=== PATIENT | male | born 1930 | race Caucasian/White ===

== ENCOUNTER 2016-08-17 14:38 | Observation (INO) | payer OTHER, MEDICARE ==
--- NOTE | 2016-08-17 17:03 | PDOC ---
History of Present Illness - General History Source: Patient, Family (Daughter ) Exam Limitations: No Limitations - History of Present Illness Initial Comments: 08/17/16 19:03 The patient is a 86 year old male presenting with his daughter, with a significant past medical history of Prostate CA, HTN, Sick sinus syndrome, parkinsons and kidney stones, who presents to the emergency department with right sided flank pain for the past week. He states that his pain has increased in intensity over the last couple of days. He describes his pain as moderate in severity, without radiation. He notes that the pain is constant, exacerbating when he moves around and walks. He denies taking anything for the pain. The patient denies chest pain, shortness of breath, headache and dizziness. Denies fever, chills, nausea, vomit, diarrhea and constipation. Denies dysuria, frequency, urgency and hematuria. Allergies: None Past surgical history: Right shoulder pain Social history: +Alcohol use. No tobacco or drug use reported PMD - Dr. Daniel Woods <Ryan Broderick - Last Filed: 08/17/16 19:02> <Jorge Carter - Last Filed: 08/19/16 08:27> - General Chief Complaint: Pain, Acute Stated Complaint: RIGHT SIDE PAIN FOR ONE WEEK Time Seen by Provider: 08/17/16 17:02 Past History <Ryan Broderick - Last Filed: 08/17/16 19:02> - Past Medical History Anemia: No Asthma: No Cancer: Yes (prostate CA) Cardiac Disorders: Yes (SICK SINUS SYNDROME) COPD: No Other medical history: parkinsons - Surgical History Orthopedic Surgery: Yes (THR;RIGHT SHOULDER SURGERY) - Psycho/Social/Smoking Cessation Hx Suicidal Ideation: No Smoking Status: No Smoking History: Never smoked Years of Tobacco Use: 0 Have you smoked in the past 12 months: No Number of Cigarettes Smoked Daily: 0 Information on smoking cessation initiated: No Hx Alcohol Use: Yes (occasionally) Drug/Substance Use Hx: No Substance Use Type: None <Jorge Carter - Last Filed: 08/19/16 08:27> - Past Medical History Allergies/Adverse Reactions: Allergies Allergy/AdvReac Type Severity Reaction Status Date / Time No Known Allergies Allergy Verified 08/17/16 15:22 Home Medications: Ambulatory Orders Amlodipine Besylate [Norvasc -] 2.5 mg PO DAILY 08/17/16 Bicalutamide 50 mg PO DAILY 08/17/16 Carbidopa/Levodopa [Carbidopa-Levo ER 50-200 Tab] 1 each PO DAILY 08/17/16 Carbidopa/Levodopa [Carbidopa-Levodopa 25-250 Tab] 1 each PO BID 08/17/16 Review of Systems - Review of Systems Able to Perform ROS?: Yes Comments:: 08/17/16 19:03 CONSTITUTIONAL: No reported: Fever, Chills, Diaphoresis, Generalized Weakness, Malaise, Loss of Appetite HEENT: No reported: Rhinorrhea, Nasal Congestion, Throat Pain, Throat Swelling, Difficulty Swallowing, Mouth Swelling, Ear Pain, Eye Pain, Visual Changes CARDIOVASCULAR: No reported: Chest Pain, Syncope, Palpitations, Irregular Heart Rate, Lightheadedness, Peripheral Edema RESPIRATORY: No reported: Cough, Shortness of Breath, SOB with Exertion, Orthopnea, Wheezing , Stridor, Hemoptysis GASTROINTESTINAL: No reported: Abdominal pain, Abdominal Distension, Nausea, Vomiting, Diarrhea, Constipation, Melena, Hematochezia GENITOURINARY: Reported: Right flank pain. No reported: Dysuria, Frequency, Urgency, Hesitancy, Genital Pain MUSCULOSKELETAL: No reported: Myalgia, Arthralgia, Joint Swelling, Back pain, Neck Pain SKIN: No reported: Rash, Itching, Pallor HEMEATOLOGIC/IMMUNOLOGIC: No reported: Easy Bleeding, Easy Bruising, Lymphadenopathy, Frequent infections ENDOCRINE: No reported: Unexplained Weight Gain, Unexplained Weight Loss, Heat Intolerance , Cold Intolerance NEUROLOGIC: No reported: Headache, Focal Weakness, Paresthesias, Vertigo, Lightheadedness, Unsteady Gait, Seizure, Mental Status Changes, Incontinence PSYCHIATRIC: No reported: Anxiety, Depression <Ryan Broderick - Last Filed: 08/17/16 19:02> *Physical Exam - Vital Signs Last Vital Signs Temp Pulse Resp BP Pulse Ox 97.9 F 56 L 22 143/56 97 08/17/16 15:18 08/17/16 15:18 08/17/16 15:18 08/17/16 15:18 08/17/16 15:18 - Physical Exam Comments: 08/17/16 19:03 GENERAL: The patient is awake, alert, and fully oriented, Nontoxic - in no acute distress. HEAD: Normocephalic, atraumatic. EYES: extraocular movements intact, sclera anicteric, conjunctiva clear. ENT: Normal voice, Moist mucous membranes. NECK: Normal range of motion, supple LUNGS: Breath sounds equal, clear to auscultation bilaterally. No wheezes, no rhonchi, no rales. HEART: Regular rate and rhythm, without murmur, rub or gallop. ABDOMEN: Soft, mild RLQ tenderness normoactive bowel sounds. No guarding, no rebound.No CVA tenderness BACK: no focal midline tenderness. EXTREMITIES: Normal range of motion, no edema. No clubbing or cyanosis. No cords, erythema, or tenderness. NEUROLOGICAL: No facial assymetry, Normal speech, PSYCH: Normal mood, normal affect. SKIN: Warm, Dry, normal turgor <Ryan Broderick - Last Filed: 08/17/16 19:02> - Vital Signs Last Vital Signs Temp Pulse Resp BP Pulse Ox 97.9 F 56 L 22 143/56 97 08/17/16 15:18 08/17/16 15:18 08/17/16 15:18 08/17/16 15:18 08/17/16 15:18 <Jorge Carter - Last Filed: 08/19/16 08:27> ED Treatment Course - LABORATORY CBC & Chemistry Diagram: 08/17/16 18:00 08/17/16 18:00 - ADDITIONAL ORDERS Additional order review: Laboratory Results 08/17/16 18:00 Urine Color Ltyellow Urine Appearance Clear Urine pH 6.0 Ur Specific [place] 1.010 Urine Protein Negative Urine Glucose (UA) Negative Urine Ketones Trace H Urine Blood Negative Urine Nitrite Negative Urine Bilirubin Negative Urine Urobilinogen Negative Ur Leukocyte Esterase Negative 08/17/16 18:00 RBC 4.55 MCV 92.0 MCHC 33.1 RDW 13.7 MPV 7.0 L Neutrophils % 51.2 Lymphocytes % 37.3 Monocytes % 9.3 Eosinophils % 2.0 Basophils % 0.2 - Medications Given in the ED: ED Medications Discontinued Medications Generic Name Dose Route Start Last Admin Trade Name Freq PRN Reason Stop Dose Admin Morphine Sulfate 2 mg 08/17/16 17:46 08/17/16 18:07 Morphine Injection - IVPUSH 08/17/16 17:47 2 mg ONCE ONE Administration <Ryan Broderick - Last Filed: 08/17/16 19:02> - LABORATORY CBC & Chemistry Diagram: 08/18/16 06:20 08/18/16 06:20 <Jorge Carter - Last Filed: 08/19/16 08:27> Medical Decision Making - Medical Decision Making 08/17/16 17:46 86y M hx of htn, prostate ca, presents with RLQ pain that is constant, worse with movement and certain movements, no associated f/c, diarrhea,dsyria, cp, sob. on exam pt has mild RLQ tenderness, but pt appears to have significant discomfort in sitting up. differential includes appendicits kidney stones, gb disease, msk pain will obtain blood work mophine for pain ct abdomen ua +hematuria --> noncon ct A portion of this note was documented by scribe services under my direction. I have reviewed the details of the note, within reason, and agree with the documentation with the following case summary and management plan written by me 08/17/16 20:43 case signed out to dr. daniels to fu with results and reassess the patient <Jorge Carter - Last Filed: 08/19/16 08:27> *DC/Admit/Observation/Transfer - Attestations Scribe Attestion: 08/17/16 19:04 Documentation prepared by Ryan Broderick, acting as medical record assistant for Jorge Carter MD <Ryan Broderick - Last Filed: 08/17/16 19:02> <Jorge Carter - Last Filed: 08/19/16 08:27> Diagnosis at time of Disposition: Intractable low back pain, Compression fracture of L1 lumbar vertebra - Referrals
[2016-08-17] MEDS ORDERED: morphine CARPU-JECT 2 MG/1 ML DISP.SYRIN IVPUSH ONE (17:46)
[2016-08-17] MEDS ORDERED: morphine CARPU-JECT 2 MG/1 ML DISP.SYRIN ONE (17:58)
[2016-08-17 18:14] LABS: BASOPHIL 0.2 % (0-2.0); MCH 30.4 pg (25.7-33.7); MCHC 33.1 g/dl (32.0-35.9); NEUTROPHILS 51.2 % (42.8-82.8); PLATELET COUNT 166 K/MM3 (134-434); RDW 13.7 % (11.9-15.9); WHITE BLOOD COUNT 6.3 K/mm3 (4.0-10.0)
[2016-08-17 18:20] LABS: URINE APPEARANCE CLEAR; URINE BILIRUBIN NEGATIVE (NEGATIVE); URINE BLOOD NEGATIVE (NEGATIVE); URINE COLOR LTYELLOW; URINE GLUCOSE (UA) NEGATIVE (NEGATIVE); URINE KETONE TRACE (NEGATIVE); URINE LEUK ESTERASE NEGATIVE (NEGATIVE); URINE NITRITE NEGATIVE (NEGATIVE); URINE PROTEIN NEGATIVE (NEGATIVE); URINE UROBILINOGEN NEGATIVE E.U./dl (0.2-1.0)
[2016-08-17 19:06] LABS: ALBUMIN 4.3 g/dl (3.4-5.0); ANION GAP 10 (8-16); CO2 26 mmol/L (21-32); GLUCOSE,RANDOM 95 mg/dL (74-106)
[2016-08-17 19:09] LABS: ALK PHOS 66 U/L (45-117); BILIRUBIN,TOTAL 0.5 mg/dL (0.2-1.0); COCKROFT - GAULT 78.1; CREATININE 0.7 mg/dL (0.7-1.3); SGOT/AST 23 U/L (15-37); SGPT/ALT 17 U/L (12-78)
--- NOTE | 2016-08-17 22:10 | PDOC ---
*Physical Exam - Vital Signs Last Vital Signs Temp Pulse Resp BP Pulse Ox 97.9 F 56 L 22 143/56 97 08/17/16 15:18 08/17/16 15:18 08/17/16 15:18 08/17/16 15:18 08/17/16 15:18 ED Treatment Course - LABORATORY CBC & Chemistry Diagram: 08/17/16 18:00 08/17/16 18:00 - ADDITIONAL ORDERS Additional order review: Laboratory Results 08/17/16 08/17/16 08/17/16 18:00 18:00 17:57 Sodium 142 Potassium 4.3 Chloride 106 Carbon Dioxide 26 Anion Gap 10 BUN 16 Creatinine 0.7 D Creat Clearance w eGFR > 60 Random Glucose 95 Calcium 10.0 Total Bilirubin 0.5 AST 23 ALT 17 Alkaline Phosphatase 66 Total Protein 7.0 Albumin 4.3 Lipase 173 Urine Color Ltyellow Urine Appearance Clear Urine pH 6.0 Ur Specific [place] 1.010 Urine Protein Negative Urine Glucose (UA) Negative Urine Ketones Trace H Urine Blood Negative Urine Nitrite Negative Urine Bilirubin Negative Urine Urobilinogen Negative Ur Leukocyte Esterase Negative 08/17/16 18:00 RBC 4.55 MCV 92.0 MCHC 33.1 RDW 13.7 MPV 7.0 L Neutrophils % 51.2 Lymphocytes % 37.3 Monocytes % 9.3 Eosinophils % 2.0 Basophils % 0.2 - Medications Given in the ED: ED Medications Discontinued Medications Generic Name Dose Route Start Last Admin Trade Name Freq PRN Reason Stop Dose Admin Morphine Sulfate 2 mg 08/17/16 17:46 08/17/16 18:07 Morphine Injection - IVPUSH 08/17/16 17:47 2 mg ONCE ONE Administration *DC/Admit/Observation/Transfer Diagnosis at time of Disposition: Intractable low back pain Compression fracture of L1 lumbar vertebra Qualifiers: Encounter type: initial encounter Fracture type: closed Qualified Code(s): S32.010A - Wedge compression fracture of first lumbar vertebra, initial encounter for closed fracture - Discharge Dispostion Condition at time of disposition: Stable Admit: Yes - Referrals Referrals: Jade Martinez MD [Primary Care Provider] - - Patient Instructions - Post Discharge Activity
[2016-08-17] MEDS ORDERED: KETOROLAC TROMETHAMINE 30 MG/1 ML VIAL IVPUSH ONE (22:32)
--- NOTE | 2016-08-17 23:02 | HP ---
CHIEF COMPLAINT: Right flank pain PCP: Chuck HISTORY OF PRESENT ILLNESS: Patient is a 86 year old male with significant PMH of Prostate cancer, Parkinsons, kidney stone, sick sinus syndrome & HTN who presents to ED for right flank pain. Patient is accompanied by his daughter who helps with history. He states he has had lower back pain for last few months that has progressively gotten worse, with a more severe exacerbation in the last few days. He states the pain is worse with movement, constant for the last few days & non radiating. The pain is much worse on the RIGHT side of the back. Patient denies any recent falls, but daughter states he is a poor historian and her mother told her he has had multiple falls over the last few months. Patient denies any head trauma or loss of consciousness during any of these events. Follows up with [facility] for prostate cancer (last visit 1 month ago). Denies fever, chills, SOB, chest pain, diarrhea, constipation. ER course was notable for: (1) Abdomen Pelvis CT: (-) Acute abdominal pathology but noted mild chronic L1 spinal compression fracture. (2) Afebrile, no leukocytosis (3) Pain management given in ED Recent Travel: NONE NOTED PAST MEDICAL HISTORY: ABOVE PAST SURGICAL HISTORY: RIGHT SHOULDER SURGERY Social History: Smoking: CIGARS AT FAMILY FUNCTIONS Alcohol:"NOT IN A LONG TIME" Drugs:DENIES Family History: Allergies No Known Allergies Allergy HOME MEDICATIONS: Home Medications Medication Instructions Recorded Amlodipine Besylate [Norvasc -] 2.5 mg PO DAILY 08/17/16 Bicalutamide 50 mg PO DAILY 08/17/16 Carbidopa/Levodopa [Carbidopa-Levo 1 each PO DAILY 08/17/16 ER 50-200 Tab] Carbidopa/Levodopa 1 each PO BID 08/17/16 [Carbidopa-Levodopa 25-250 Tab] REVIEW OF SYSTEMS CONSTITUTIONAL: Absent: fever, chills, diaphoresis, generalized weakness, malaise, loss of appetite, weight change HEENT: Absent: rhinorrhea, nasal congestion, throat pain, throat swelling, difficulty swallowing, mouth swelling, ear pain, eye pain, visual changes CARDIOVASCULAR: Absent: chest pain, syncope, palpitations, irregular heart rate, lightheadedness , peripheral edema RESPIRATORY: Absent: cough, shortness of breath, dyspnea with exertion, orthopnea, wheezing, stridor, hemoptysis GASTROINTESTINAL: Absent: abdominal pain, abdominal distension, nausea, vomiting, diarrhea, constipation, melena, hematochezia GENITOURINARY: Absent: dysuria, frequency, urgency, hesitancy, hematuria, flank pain, genital pain MUSCULOSKELETAL: (+)back pain, Absent: myalgia, arthralgia, joint swelling, neck pain SKIN: Absent: rash, itching, pallor HEMATOLOGIC/IMMUNOLOGIC: Absent: easy bleeding, easy bruising, lymphadenopathy, frequent infections ENDOCRINE: Absent: unexplained weight gain, unexplained weight loss, heat intolerance, cold intolerance NEUROLOGIC: Absent: headache, focal weakness or paresthesias, dizziness, unsteady gait, seizure, mental status changes, bladder or bowel incontinence PSYCHIATRIC: Absent: anxiety, depression, suicidal or homicidal ideation, hallucinations. PHYSICAL EXAMINATION Vital Signs - 24 hr 08/17/16 08/17/16 15:18 22:16 Temperature 97.9 F Pulse Rate 56 L Pulse Rate [ 60 Left] Respiratory 22 17 Rate Blood Pressure 143/56 Blood Pressure 150/60 [Arm] O2 Sat by Pulse 97 100 Oximetry (%) GENERAL: Awake, alert, and fully oriented, in no acute distress. HEENT: Atraumatic, EOMI, PERRLA, No lymphadenopathy noted, moist membranes LUNGS: Breath sounds equal, clear to auscultation bilaterally. No wheezes, and no crackles. No accessory muscle use. HEART: Regular rate and rhythm, normal S1 and S2 without murmur, rub or gallop. ABDOMEN: Soft, nontender, not distended, normoactive bowel sounds. (+)RIGHT CVA TENDERNESS MUSCULOSKELETAL: Normal range of motion at all joints. No bony deformities or tenderness. (-) Straight leg test bilaterally. No tenderness to spinal palpation UPPER EXTREMITIES: 2+ pulses, warm, well-perfused. No cyanosis. No clubbing. No peripheral edema. LOWER EXTREMITIES: 2+ pulses, warm, well-perfused. No calf tenderness. No peripheral edema. NEUROLOGICAL: Cranial nerves II-XII intact. Normal speech. Gait not observed PSYCHIATRIC: Cooperative. Good eye contact. Appropriate mood and affect. SKIN: Warm, dry, normal turgor, no rashes or lesions noted, normal capillary refill. Laboratory Results - last 24 hr 08/17/16 08/17/16 08/17/16 17:57 18:00 18:00 WBC 6.3 RBC 4.55 Hgb 13.9 Hct 41.9 MCV 92.0 MCHC 33.1 RDW 13.7 Plt Count 166 MPV 7.0 L Neutrophils % 51.2 Lymphocytes % 37.3 Monocytes % 9.3 Eosinophils % 2.0 Basophils % 0.2 Sodium 142 Potassium 4.3 Chloride 106 Carbon Dioxide 26 Anion Gap 10 BUN 16 Creatinine 0.7 D Creat Clearance w eGFR > 60 Random Glucose 95 Calcium 10.0 Total Bilirubin 0.5 AST 23 ALT 17 Alkaline Phosphatase 66 Total Protein 7.0 Albumin 4.3 Lipase 173 Urine Color Urine Appearance Urine pH Ur Specific [place] Urine Protein Urine Glucose (UA) Urine Ketones Urine Blood Urine Nitrite Urine Bilirubin Urine Urobilinogen Ur Leukocyte Esterase 08/17/16 18:00 WBC RBC Hgb Hct MCV MCHC RDW Plt Count MPV Neutrophils % Lymphocytes % Monocytes % Eosinophils % Basophils % Sodium Potassium Chloride Carbon Dioxide Anion Gap BUN Creatinine Creat Clearance w eGFR Random Glucose Calcium Total Bilirubin AST ALT Alkaline Phosphatase Total Protein Albumin Lipase Urine Color Ltyellow Urine Appearance Clear Urine pH 6.0 Ur Specific [place] 1.010 Urine Protein Negative Urine Glucose (UA) Negative Urine Ketones Trace H Urine Blood Negative Urine Nitrite Negative Urine Bilirubin Negative Urine Urobilinogen Negative Ur Leukocyte Esterase Negative ASSESSMENT/PLAN: 86 year old male with significant PMH of Prostate cancer, Parkinsons, kidney stone, sick sinus syndrome & HTN who presents to ED for right-sided back pain. L1 compression fracture noted on CT. #Back pain, likely secondary to L1 compression fracture -pain management with Toradol -Neurosurgery consulted -PT eval -may need MRI, defer to neurosurgery #Parkinsons Disease -resume home meds: Sinamet (50-200 at 7AM & 10PM; 25-250 at 10AM & 4PM) #HTN -resume home meds: Norvasc #Prostate CA -may need to discuss with attending at [facility] to r/o pathological fracture -continue bicalutamide Prophylaxis -Heparin -No PPI indicated FEN: Sodium-controlled diet, will continue to monitor electrolytes Visit type - Emergency Visit Emergency Visit: Yes ED Registration Date: 08/18/16 Care time: The patient presented to the Emergency Department on the above date and was hospitalized for further evaluation of their emergent condition. - New Patient This patient is new to me today: Yes Date on this admission: 08/18/16 - Critical Care Critical Care patient: No
--- NOTE | 2016-08-17 23:16 | PN ---
<Cale Wilks - Last Filed: 08/18/16 01:31> Teaching Attending Note ATTENDING PHYSICIAN STATEMENT I saw and evaluated the patient. I reviewed the resident's note and discussed the case with the resident. I agree with the resident's findings and plan as documented. SUBJECTIVE: 86 year old male that present to the ED for evaluation of right flank pain. PMH: Prostate cancer, parkinsons, kidney stones, sick sinus syndrome, HTN Surgical history: Right shoulder Social history: Smoke cigars denies drugs Allergies: none Home medications: Home Medication List Medication Instructions Recorded Confirmed Type Amlodipine Besylate [Norvasc -] 2.5 mg PO DAILY 08/17/16 08/17/16 History Bicalutamide 50 mg PO DAILY 08/17/16 08/17/16 History Carbidopa/Levodopa [Carbidopa-Levo 1 each PO DAILY 08/17/16 08/17/16 History ER 50-200 Tab] Carbidopa/Levodopa 1 each PO BID 08/17/16 08/17/16 History [Carbidopa-Levodopa 25-250 Tab] Active Medications Generic Name Dose Route Start Last Admin Trade Name Freq PRN Reason Stop Dose Admin Amlodipine Besylate 2.5 mg 08/18/16 10:00 Norvasc - PO DAILY CHAUNCEY Bicalutamide 50 mg 08/18/16 10:00 Casodex - PO DAILY CHAUNCEY Carbidopa/Levodopa 1 each 08/18/16 10:00 Sinemet 25/250 - PO BID CHAUNCEY Carbidopa/Levodopa 1 combo 08/18/16 07:00 Sinemet *Cr* 50/200 - PO BID@07,22 CHAUNCEY Heparin Sodium (Porcine) 5,000 unit 08/18/16 06:00 Heparin - SQ TID CHAUNCEY Ketorolac Tromethamine 15 mg 08/17/16 22:55 Toradol Injection - IVPUSH 08/22/16 22:54 Q6H PRN PAIN OBJECTIVE: Vital Signs: Last Vital Signs Temp Pulse Resp BP Pulse Ox 97.9 F 60 17 150/60 100 08/17/16 15:18 08/17/16 22:16 08/17/16 22:16 08/17/16 22:16 08/17/16 22:16 Labs: CBCD WBC 6.3 K/mm3 (4.0-10.0) 08/17/16 18:00 RBC 4.55 M/mm3 (4.00-5.60) 08/17/16 18:00 Hgb 13.9 GM/dL (11.7-16.9) 08/17/16 18:00 Hct 41.9 % (35.4-49) 08/17/16 18:00 MCV 92.0 fl (80-96) 08/17/16 18:00 MCHC 33.1 g/dl (32.0-35.9) 08/17/16 18:00 RDW 13.7 % (11.9-15.9) 08/17/16 18:00 Plt Count 166 K/MM3 (134-434) 08/17/16 18:00 MPV 7.0 fl (7.5-11.1) L 08/17/16 18:00 CMP Sodium 142 mmol/L (136-145) 08/17/16 18:00 Potassium 4.3 mmol/L (3.5-5.1) 08/17/16 18:00 Chloride 106 mmol/L (98-107) 08/17/16 18:00 Carbon Dioxide 26 mmol/L (21-32) 08/17/16 18:00 Anion Gap 10 (8-16) 08/17/16 18:00 BUN 16 mg/dL (7-18) 08/17/16 18:00 Creatinine 0.7 mg/dL (0.7-1.3) D 08/17/16 18:00 Creat Clearance w eGFR > 60 (>60) 08/17/16 18:00 Calcium 10.0 mg/dL (8.5-10.1) 08/17/16 18:00 Total Bilirubin 0.5 mg/dL (0.2-1.0) 08/17/16 18:00 AST 23 U/L (15-37) 08/17/16 18:00 ALT 17 U/L (12-78) 08/17/16 18:00 Alkaline Phosphatase 66 U/L (45-117) 08/17/16 18:00 Total Protein 7.0 g/dl (6.4-8.2) 08/17/16 18:00 Albumin 4.3 g/dl (3.4-5.0) 08/17/16 18:00 Imaging: EXAM#: TYPE/EXAM: RESULT: [id number] CT/ABDOMEN PELVIS CT WITH CONTR Abdomen and pelvis CT with intravenous contrast Clinical information: right flank pain Multiplanar imaging was performed following the intravenous administration of nonionic contrast. As requested enteric contrast was not administered. No prior CT studies are available at this facility for direct comparison. There is no evidence of pneumoperitoneum, free intraperitoneal fluid or bowel obstruction. The liver, spleen, gallbladder, adrenal glands and kidneys demonstrate no discrete abnormality. No biliary tract dilatation is seen. Within the pancreatic head and neck the main pancreatic duct is slightly prominent measuring 3.4 mm in diameter. No gross pancreatic mass lesion is identified. There is no aortic aneurysm. No definite lymphadenopathy is identified. The appendix is not definitely visualized however there are no indirect CT signs of acute appendicitis. Left-sided colonic diverticulosis is seen without evidence of acute diverticulitis. No flank hernia is noted. The lower pelvis is partially obscured due to metallic artifact arising from right hip surgical instrumentation. No gross small bowel pathology. Mild chronic L1 vertebral body compression fracture without bony retropulsion. IMPRESSION: No definite CT findings of acute pathology are identified. The main pancreatic duct appears slightly prominent within the head and neck. Additional nonemergent imaging evaluation may be considered. No gross mass lesion is identified on the current study. Left-sided colonic diverticulosis. Reported By: Hunter Dale MD 08/17 ASSESSMENT AND PLAN: 1. L1 compression fracture in a patient with prostate cancer. Possibility of metastatic disease cannot be excluded. Acuity of the fracture is unknown. There is no acute neurological deficit. -MRI -Neurosurgery evaluation - Physical therapy evaluation - Pain management 2. Parkinsons -Continue current medications 3. HTN stable - Continue Norvasc Hospitalized for observation. Documentation prepared by Cale Wilks, acting as bilingual medical assistant for Dr. Zacarias MD. <Whitney Adames - Last Filed: 08/18/16 01:40> Teaching Attending Note Name of Resident: [employer] GENERAL: Awake, alert, and fully oriented, in no acute distress. HEENT: Atraumatic, EOMI, PERRLA, No lymphadenopathy noted, moist membranes LUNGS: Breath sounds equal, clear to auscultation bilaterally. No wheezes, and no crackles. No accessory muscle use. HEART: Regular rate and rhythm, normal S1 and S2 without murmur, rub or gallop. ABDOMEN: Soft, nontender, not distended, normoactive bowel sounds. (+)RIGHT CVA TENDERNESS MUSCULOSKELETAL: Normal range of motion at all joints. No bony deformities or tenderness. (-) Straight leg test bilaterally. No tenderness to spinal palpation UPPER EXTREMITIES: 2+ pulses, warm, well-perfused. No cyanosis. No clubbing. No peripheral edema. LOWER EXTREMITIES: 2+ pulses, warm, well-perfused. No calf tenderness. No peripheral edema. NEUROLOGICAL: Cranial nerves II-XII intact. Normal speech. Gait not observed PSYCHIATRIC: Cooperative. Good eye contact. Appropriate mood and affect. SKIN: Warm, dry, normal turgor, no rashes or lesions noted, normal capillary refill.
[2016-08-17] MEDS ORDERED: KETOROLAC TROMETHAMINE 30 MG/1 ML VIAL ONE (23:41)
[2016-08-18] MEDS ORDERED: morphine CARPU-JECT 2 MG/1 ML DISP.SYRIN IVPUSH ONE (02:13)
[2016-08-18 04:13] VITALS: BMI 22.8
[2016-08-18] MEDS: HEPARIN NA (PORCINE) 5,000 UNITS/ML 1ML VIAL SQ SCH ×3 (06:15→22:08)
[2016-08-18 07:42] LABS: MCH 30.7 pg (25.7-33.7); MCHC 33.5 g/dl (32.0-35.9); MEAN CELL VOLUME 91.8 fl (80-96); MEAN PLT VOLUME 7.1 fl (7.5-11.1); PLATELET COUNT 130 K/MM3 (134-434); WHITE BLOOD COUNT 4.9 K/mm3 (4.0-10.0)
[2016-08-18 08:14] LABS: ALBUMIN 3.3 g/dl (3.4-5.0); ANION GAP 8 (8-16); CALCIUM 9.1 mg/dL (8.5-10.1); CO2 27 mmol/L (21-32); GLUCOSE,RANDOM 85 mg/dL (74-106)
[2016-08-18 08:17] LABS: ALK PHOS 52 U/L (45-117); BILIRUBIN,TOTAL 0.7 mg/dL (0.2-1.0); COCKROFT - GAULT 68.18; CREATININE 0.7 mg/dL (0.7-1.3); SGOT/AST 17 U/L (15-37); SGPT/ALT 19 U/L (12-78); TOT PROT 5.5 g/dl (6.4-8.2)
[2016-08-18] MEDS: KETOROLAC TROMETHAMINE 15 MG/ML VIAL IVPUSH PRN ×2 (08:50→18:46)
[2016-08-18] MEDS ORDERED: PT OWN MED DRAWER 7, Y5N ONE ×2 (09:47→21:24)
[2016-08-18] MEDS ORDERED: CARBIDOPA/LEVODOPA 25/250 TABLET (FP) PO SCH ×2 (10:00→21:28)
[2016-08-18] MEDS ORDERED: PNEUMOC 13-VAL CONJ-DIP CRM/PF 0.5 ML DISP.SYRIN IM ONE (10:00)
[2016-08-18] MEDS: amLODIPine BESYLATE 2.5 MG TABLET (FP) PO SCH (10:12)
[2016-08-18] MEDS: BICALUTAMIDE 50 MG TABLET (FP) PO SCH (11:28)
--- NOTE | 2016-08-18 12:33 | EKG ---
Test Reason : Blood Pressure : / mmHG Vent. Rate : 050 BPM Atrial Rate : 050 BPM P-R Int : 212 ms QRS Dur : 094 ms QT Int : 472 ms P-R-T Axes : 082 058 058 degrees QTc Int : 430 ms SINUS BRADYCARDIA WITH 1ST DEGREE A-V BLOCK OTHERWISE NORMAL ECG WHEN COMPARED WITH ECG OF 17-AUG-2006 07:44, [place] INTERVAL HAS INCREASED Confirmed by GLO GILLIS, MAURICIO ([id number]) on 08/18/2016 12:33:28 PM Referred By: Confirmed By:MAURICIO CODY MD
--- NOTE | 2016-08-18 17:26 | PN ---
Progress Note, Physician Chief Complaint: Mr Santos says he is having back pain but improving. No cp, sob, n/v - Current Medication List Current Medications: Active Medications Amlodipine Besylate (Norvasc -) 2.5 mg PO DAILY [facility] Last Admin: 08/18/16 10:12 Dose: 2.5 mg Bicalutamide (Casodex -) 50 mg PO DAILY [facility] Last Admin: 08/18/16 11:28 Dose: 50 mg Carbidopa/Levodopa (Sinemet 25/250 -) 1 each PO BID [facility] Last Admin: 08/18/16 10:12 Dose: 1 each Carbidopa/Levodopa (Sinemet *Cr* 50/200 -) 1 combo PO BID@ [facility] Last Admin: 08/18/16 06:15 Dose: 1 combo Heparin Sodium (Porcine) (Heparin -) 5,000 unit SQ TID [facility] Last Admin: 08/18/16 14:45 Dose: 5,000 unit Ketorolac Tromethamine (Toradol Injection -) 15 mg IVPUSH Q6H PRN PRN Reason: PAIN Stop: 08/22/16 22:54 Last Admin: 08/18/16 08:50 Dose: 15 mg - Objective Vital Signs: Vital Signs Temperature 97.4 F L 08/18/16 14:00 Pulse Rate 50 L 08/18/16 14:00 Respiratory Rate 17 08/18/16 14:00 Blood Pressure 120/52 08/18/16 10:00 O2 Sat by Pulse Oximetry (%) 100 08/18/16 01:31 Constitutional: Yes: Well Nourished, No Distress, Calm Cardiovascular: Yes: Regular Rate and Rhythm. No: Gallop, Murmur, Rub Respiratory: Yes: Regular, CTA Bilaterally. No: Rales, Rhonchi, Wheezes Gastrointestinal: Yes: Normal Bowel Sounds, Soft. No: Distention, Tenderness Extremities: Yes: WNL Edema: No Labs: CBC, BMP 08/18/16 06:20 08/18/16 06:20 Problem List - Problems (1) Compression fracture of L1 lumbar vertebra Assessment/Plan: -improved currently -did well with PT -neurosurgery consulted and awaiting recommendations -dispo planning per Dr Castillo's recommendations -secondary to fall/trauma that occurred four weeks ago Code(s): S32.010A - WEDGE COMPRESSION FRACTURE OF FIRST LUMBAR VERTEBRA, INIT Qualifiers: Encounter type: initial encounter Fracture type: closed Qualified Code(s): S32.010A - Wedge compression fracture of first lumbar vertebra, initial encounter for closed fracture
--- NOTE | 2016-08-18 21:32 | PN ---
Progress Note (short form) - Note Progress Note: NEUROSURGERY CONSULT DICTATED Chart reviewed Pt examined H/o HTN, prostate ca, Parkinsons, sick sinus syndrome and nephrolithiasis c/o right flank pain and L knee pain. c/o lower back pain for last few months more severe exacerbation over 1 week. Pain mostly R sided. No radicular painm leg weakness/numbness. PE: AF, VSS HEENT- NC/AT; Neck- supple; Cor- RR; Lungs- CTA; Abd- benign; Ext- no sign of DVT CN- intact; Motor- at least 4+ b UE/LE; Sensation- intact LT; DTR_ hyporefelxia CT abd- chronic L1 wedging without significant canal compromise LS MRI (09/2015)- chronic L1 compression fx; multievel DDD and mild lateral recess narrowing; facet hypertrophy; L4-5 and L5-S1 disc bulge UA- negative Chronic L1 compression fx - doubt the cause of his more acute R sided LBP L4-5 > L5-S1 DDD and bulges No neurosurgical intervention recommended for this elderly gentleman PT-modalities Can consider pain management input and EPSI if persistent pain
--- NOTE | 2016-08-18 23:59 | CONS ---
DATE OF CONSULTATION: 08/18/2016 REQUESTING PHYSICIAN: Blas Pryor M.D. CONSULTING PHYSICIAN: Te Flannery M.D., neurosurgery CHIEF COMPLAINT: Right sided back pain. HISTORY OF PRESENT ILLNESS: The patient is an 86-year-old right handed male with a history of prostate cancer, Parkinson disease, nephrolithiasis, sick sinus syndrome, and hypertension, who complains of right sided back and flank pain. He denies any hematuria and has no fever or chill. He has had multiple falls in the past few months because of his Parkinson disease. He denies significant leg weakness and has no sciatica. He has no significant numbness. He denies bowel, bladder dysfunction. PAST MEDICAL HISTORY: Significant for hypertension, Parkinson disease, nephrolithiasis, prostate cancer, sick sinus syndrome. CURRENT MEDICATIONS: Norvasc, carbidopa/levodopa, bicalutamide. ALLERGIES: No known drug allergies. FAMILY HISTORY: Noncontributory. SOCIAL HISTORY: He does not smoke or drink. He is retired. REVIEW OF SYSTEMS: Otherwise negative for other cardiovascular, pulmonary, gastrointestinal, genitourinary, endocrinologic, neurologic, or psychological problems except for the above. He does have a neurologic examination. PHYSICAL EXAMINATION: Vital signs: Temperature 97.4, blood pressure 120/60 with pulse rate of 50. HEENT: Normocephalic, atraumatic, anicteric. Neck: Supple with no carotid bruit. Coronary: Bradycardia. Lungs: Clear bilaterally. Abdomen: Benign. Extremities: No obvious signs of DVT. Neurologic: He is awake, alert, oriented x2. Cranial nerves examination intact 2-12. Motor examination shows at least 4+/5 strength in bilateral upper and lower extremities. Sensory examination is intact to light touch. Deep tendon reflexes are hyporeflexive throughout. There is no pathological long tract sine. Gait is not tested for safety reasons. Back: Examination of lower back shows mild paraspinal muscle spasm to bilateral lumbar sacral junction right greater than left. He has a mildly positive straight leg raise on the right side of about 50 degrees. LABORATORY EXAMINATION: White blood cell count to be 4900, hemoglobin 12.3. Serum sodium 141, potassium 4.0, BUN and creatinine are 15 and 0.7 respectively. Albumin is 3.3. Urinalysis shows trace ketones. MRI examination of the lumbar spine done last September demonstrated multilevel degenerative disk disease with broad based disk bulge at L4-5 and L5-S1, facet hypertrophy and mild lateral recess narrowing at multiple levels. There is a chronic L1 compression fracture with approximately 25% reduction in L1 anterior vertebral height, that is unchanged from CT scan done yesterday of the abdomen and pelvis which demonstrated the same chronic fracture. IMPRESSION: 1. Chronic L1 compression fracture. 2. Multilevel lumbar degenerative disk disease, worst at L4-5 and L5-S1. 3. History of nephrolithiasis. 4. Hypertension/sick sinus syndrome by report. 5. Parkinson disease. 6. Prostate carcinoma. RECOMMENDATION: The patient presents with 1-week history of worsening right sided back and flank pain. He has no true sciatica. He has suffered from multiple falls likely secondary to his Parkinson disease. CT scan of the abdomen did not demonstrate significant further fracture, and the prior MRI done last May demonstrated multilevel degenerative disk disease but no severe stenosis. Neurosurgical intervention is not recommended in this elderly gentleman with medical comorbidities. If his pain persists, he can consider epidural steroid injection. The patient could also consider course of physical therapy with modality treatment to decrease his pain as well. The above was discussed with the patient at bedside. The pros and cons of treatment approaches were discussed. All questions were answered. TE FLANNERY M.D. EDIN/[id number] MTDD
[2016-08-19] MEDS: HEPARIN NA (PORCINE) 5,000 UNITS/ML 1ML VIAL SQ SCH (06:27)
[2016-08-19] MEDS ORDERED: PT OWN MED DRAWER 7, Y5N ONE (09:15)
[2016-08-19] MEDS: amLODIPine BESYLATE 2.5 MG TABLET (FP) PO SCH (09:22)
[2016-08-19] MEDS: BICALUTAMIDE 50 MG TABLET (FP) PO SCH (09:22)
--- NOTE | 2016-08-19 09:41 | PN ---
Progress Note (short form) - Note Progress Note: NEUROSURGERY No new complaint PE: AF, VSS HEENT- NC/AT; Neck- supple; Cor- RR; Lungs- CTA; Abd- benign; Ext- no sign of DVT CN- intact; Motor- at least 4+ b UE/LE; Sensation- intact LT; DTR- hyporefelxia CT abd- chronic L1 wedging without significant canal compromise LS MRI (09/2015)- chronic L1 compression fx; multievel DDD and mild lateral recess narrowing; facet hypertrophy; L4-5 and L5-S1 disc bulge; mild L4-5 annular tear UA- negative Chronic L1 compression fx - doubt the cause of his more acute R sided LBP L4-5 > L5-S1 DDD and bulges with LBP R > L No neurosurgical intervention for the lumbar spine recommended for this elderly gentleman with medical co-morbidities PT-modalities regimen outpatient Can consider pain management input and EPSI if persistent pain despite PT (risks ; bleeding, infection, spinal h/a, nerve injury) Fall precaution given Parkinson's PSA Pros and cons of tx approaches d/w daughter including future f/u plans
[2016-08-19] MEDS: KETOROLAC TROMETHAMINE 15 MG/ML VIAL IVPUSH PRN (11:04)
--- NOTE | 2016-08-19 11:51 | DS ---
Physical Examination Vital Signs: Vital Signs Temperature 97.4 F L 08/19/16 06:00 Pulse Rate 53 L 08/19/16 06:00 Respiratory Rate 20 08/19/16 06:00 Blood Pressure 135/76 08/19/16 06:00 O2 Sat by Pulse Oximetry (%) 100 08/19/16 01:00 Constitutional: Yes: Well Nourished, No Distress, Calm Cardiovascular: Yes: Regular Rate and Rhythm. No: Gallop, Murmur, Rub Respiratory: Yes: Regular, CTA Bilaterally. No: Rales, Rhonchi, Wheezes Gastrointestinal: Yes: Normal Bowel Sounds, Soft. No: Distention, Tenderness Extremities: Yes: WNL Edema: No Labs: CBC, BMP 08/18/16 06:20 08/18/16 06:20 Discharge Summary Reason For Visit: INTRACTABLE LOW BACK PAIN Current Active Problems Compression fracture of L1 lumbar vertebra (Acute) Intractable low back pain (Acute) Hospital Course: (1) Compression fracture of L1 lumbar vertebra Code(s): S32.010A - WEDGE COMPRESSION FRACTURE OF FIRST LUMBAR VERTEBRA, INIT Qualifiers: Encounter type: initial encounter Fracture type: closed Qualified Code(s): S32.010A - Wedge compression fracture of first lumbar vertebra, initial encounter for closed fracture Mr Villagran is a pleasant 86 year old male who came in with back pain after a fall and was found to have a compression fracture. He was admitted under observation. He was started on toradol for pain control. He was seen by PT and did well. He was seen by neurosurgery, no intervention was indicated. Currently he is doing better. He will be discharged on prn tramadol. He is instructed to use a rolling walker when ambulating. He has been given a prescription for outpatient physical therapy. He is safe for discharge home. Instructions discussed with family in room. Condition: Good - Instructions Diet, Activity, Other Instructions: resume previous diet. Walk with walker. Referrals: Daniel Woods MD [Staff Physician] - Disposition: HOME - Home Medications Comprehensive Discharge Medication List: Ambulatory Orders Amlodipine Besylate [Norvasc -] 2.5 mg PO DAILY 08/17/16 Bicalutamide 50 mg PO DAILY 08/17/16 Carbidopa/Levodopa [Carbidopa-Levo ER 50-200 Tab] 1 each PO DAILY 08/17/16 Carbidopa/Levodopa [Carbidopa-Levodopa 25-250 Tab] 1 each PO BID 08/17/16 Physical Therapy Order 1 each NR ASDIR #1 order 08/19/16 Tramadol HCl 50 mg PO Q8H PRN #40 tablet MDD 150mg 08/19/16
[2016-08-19 12:40] VITALS: BP 119/63; PULSE 56; TEMP 97.8
== END 2016-08-19 12:45 | disposition home or self-care (01) ==
LOC: JER 14:38 → INTOOBSV 22:10 → JERBED 22:10 → UNDOADMOB 22:10 → J6S 08-18 00:27 → JERBED 08-18 00:27 → J6S 08-18 01:31 → JERBED 08-18 01:31
PROVIDERS: ADMIT Internal Medicine; ATTEND Internal Medicine
PROC: 3E033NZ Introduction of Analgesics, Hypnotics, Sedatives into Peripheral Vein, Percutaneous Approach (ICD-10-PCS; principal; 2016-08-18)
PROC: 3E0333Z Introduction of Anti-inflammatory into Peripheral Vein, Percutaneous Approach (ICD-10-PCS; 2016-08-18)
PROC: 3E013GC Introduction of Other Therapeutic Substance into Subcutaneous Tissue, Percutaneous Approach (ICD-10-PCS; 2016-08-18)
PROC: 3E0234Z Introduction of Serum, Toxoid and Vaccine into Muscle, Percutaneous Approach (ICD-10-PCS; 2016-08-18)
DX: S32.010A Wedge compression fracture of first lumbar vertebra, initial encounter for closed fracture (principal); M54.5 Low back pain; I10 Essential (primary) hypertension; I49.5 Sick sinus syndrome; G20 Parkinson's disease; Z85.46 Personal history of malignant neoplasm of prostate; Z79.01 Long term (current) use of anticoagulants; Z87.442 Personal history of urinary calculi; X58.XXXA Exposure to other specified factors, initial encounter; Y93.9 Activity, unspecified; Y92.9 Unspecified place or not applicable
CPT/HCPCS: 36415; 74177-TC; 80053; 81003; 83690; 83735; 84100; 84153; 85025; 85027; 90670; 93005; 93010; 97116-GP; 97161-GP; 99285-25; G0009; G0378; J1644

== ENCOUNTER 2017-05-11 20:55 | Emergency (ER) | payer OTHER, MEDICARE ==
[2017-05-11] MEDS ORDERED: SODIUM CHLORIDE 1,000 ML IV STA (21:16)
--- NOTE | 2017-05-11 21:16 | PDOC ---
Rapid Medical Evaluation Time Seen by Provider: 05/11/17 21:10 Medical Evaluation: Allergies Allergy/AdvReac Type Severity Reaction Status Date / Time No Known Allergies Allergy Verified 08/17/16 15:22 I have performed a brief in-person evaluation of this patient. The patient presents with a chief complaint of: CP x 2 days, dry cough x 3 days. Daughter stated patient is more confused than normal today. Pertinent physical exam findings: Dry mucous membranes. lungs CTA. 2+ pitting edema b/l LEs. I have ordered the following: Cardiac and pneumonia work up. Will also do flu swab in case admission The patient will proceed to the ED for further evaluation.
[2017-05-11 21:22] VITALS: BP 135/61; PULSE 93; TEMP 98.3; BMI 26.2
[2017-05-11] MEDS ORDERED: ALBUTEROL SO4 2.5/IPRATROPIUM 0.5 INH SOL 3 ML VIAL.NEB. NEB ONE ×2 (21:47→22:22)
--- NOTE | 2017-05-11 21:47 | PDOC ---
History of Present Illness - General History Source: Patient Exam Limitations: No Limitations - History of Present Illness Initial Comments: 05/11/17 23:31 The patient is a 87 year old male, with a significant past medical history of Parkinsons, hypertension, and Parkinsons. who presents to the emergency department BIB daughter with a subjective fever for approximately 4 days. As per daughter, the patient has been running a high temperature since New Years jordan. He reports an associated non productive cough, but denies any chills, headache, or dizziness. Daughter reports patient saw his PCP, Dr. Woods yesterday, where he was diagnosed with a throat infection, and was started on Amoxicillin. Patient reports minimal relief of symptoms. Daughter reports patient has experienced associated chest pain and shortness of breath for 2 days , but no diaphoresis or palpitations. Today, daughter reports patient is increasingly confused, but she denies any head trauma or changes in vision. Patient denies any dysuria, hematuria, frequency, or urgency. He denies any nausea, vomiting, diarrhea or constipation. He denies any recent travel or sick contacts. Allergies: NKDA Past Surgical History: THR; right shoulder surgery. Social History: Non smoker. No ETOH or recreational drug use. PCP: Dr. Woods <Aurea Patrick - Last Filed: 05/11/17 23:31> <Chika Avila - Last Filed: 05/12/17 00:41> - General Chief Complaint: Shortness of Breath Stated Complaint: CHEST PAIN Time Seen by Provider: 05/11/17 21:10 Past History <Aurea Patrick - Last Filed: 05/11/17 23:31> - Past Medical History Anemia: No Asthma: No Cancer: Yes (prostate CA) Cardiac Disorders: Yes (SICK SINUS SYNDROME) COPD: No HTN: Yes Other medical history: parkinsons - Surgical History Orthopedic Surgery: Yes (THR;RIGHT SHOULDER SURGERY) - Suicide/Smoking/Psychosocial Hx Smoking Status: No Smoking History: Never smoked Years of Tobacco Use: 0 Have you smoked in the past 12 months: No Number of Cigarettes Smoked Daily: 0 Hx Alcohol Use: No Drug/Substance Use Hx: No Substance Use Type: None Hx Substance Use Treatment: No <Chika Avila - Last Filed: 05/12/17 00:41> - Past Medical History Allergies/Adverse Reactions: Allergies Allergy/AdvReac Type Severity Reaction Status Date / Time No Known Allergies Allergy Verified 08/17/16 15:22 Home Medications: Ambulatory Orders Amlodipine Besylate [Norvasc -] 2.5 mg PO DAILY 08/17/16 Bicalutamide 50 mg PO DAILY 08/17/16 Carbidopa/Levodopa [Carbidopa-Levo ER 50-200 Tab] 1 each PO DAILY 08/17/16 Carbidopa/Levodopa [Carbidopa-Levodopa 25-250 Tab] 1 each PO BID 08/17/16 Physical Therapy Order 1 each NR ASDIR #1 order 08/19/16 Tramadol HCl 50 mg PO Q8H PRN #40 tablet MDD 150mg 08/19/16 Albuterol Sulfate Inhaler - [Ventolin HFA Inhaler -] 1 - 2 inh PO Q4H PRN #1 inhaler 05/12/17 Inhaler, Assist Devices [Space Chamber Plus] 1 each MC QID PRN #1 spacer Review of Systems - Review of Systems Able to Perform ROS?: Yes Comments:: 05/11/17 23:31 GENERAL/CONSTITUTIONAL: Yes fever. No chills. No weakness. HEAD, EYES, EARS, NOSE AND THROAT: No change in vision. No ear pain or discharge. No sore throat. GASTROINTESTINAL: No nausea, vomiting, diarrhea or constipation. GENITOURINARY: No dysuria, frequency, or change in urination. CARDIOVASCULAR: Yes chest pain and shortness of breath. RESPIRATORY: Yes dry cough. No wheezing, or hemoptysis. MUSCULOSKELETAL: No joint or muscle swelling or pain. No neck or back pain. SKIN: No rash NEUROLOGIC: Yes changes in mental status. No headache, vertigo, loss of consciousness, or change in strength/sensation. ENDOCRINE: No increased thirst. No abnormal weight change. HEMATOLOGIC/LYMPHATIC: No anemia, easy bleeding, or history of blood clots. ALLERGIC/IMMUNOLOGIC: No hives or skin allergy. <Aurea Patrick - Last Filed: 05/11/17 23:31> *Physical Exam - Vital Signs Last Vital Signs Temp Pulse Resp BP Pulse Ox 98.3 F 93 H 30 H 135/61 93 L 05/11/17 21:17 05/11/17 21:17 05/11/17 21:17 05/11/17 21:17 05/11/17 21:17 - Physical Exam Comments: 05/11/17 23:32 Constitutional: Awake, alert, oriented. No acute distress. Head: Normocephalic. Atraumatic Eyes: PERRL. EOMI. Conjunctivae are not pale. ENT: Mucous membranes are moist and intact. Posterior pharynx without exudates or erythema. Uvula midline. Neck: Supple. Full ROM. No lymphadenopathy. Cardiovascular: Regular rate. Regular rhythm. S1, S2 regular. Distal pulses are 2+ and symmetric. Pulmonary/Chest: Coarse breath sounds at bilateral bases. Tachypneic. No wheezing, rales or rhonchi. Abdominal: Soft and non-distended. There is no tenderness. No rebound, guarding or rigidity. No organomegaly. No palpable masses. Good bowel sounds. Back: No CVA tenderness. Musculoskeletal: No edema. No cyanosis. No clubbing. Full range of motion in all extremities. No calf tenderness. Radial/pedal pulses are intact and 2+ bilaterally Skin: Skin is warm and dry. No petechiae. No purpura. Neurological: Alert and oriented to person and place. Cranial nerves II-XII are grossly intact. Normal speech. Strength is grossly symmetric. No sensory deficits. Psychiatric: Good eye contact. Normal interaction, affect and behavior. <Aurea Patrick - Last Filed: 05/11/17 23:31> - Vital Signs Last Vital Signs Temp Pulse Resp BP Pulse Ox 98.3 F 93 H 30 H 135/61 93 L 05/11/17 21:17 05/11/17 21:17 05/11/17 21:17 05/11/17 21:17 05/11/17 21:17 <Chika Avila - Last Filed: 05/12/17 00:41> ED Treatment Course - LABORATORY CBC & Chemistry Diagram: 05/11/17 21:40 05/11/17 21:40 - ADDITIONAL ORDERS Additional order review: Laboratory Results 05/11/17 05/11/17 05/11/17 21:40 21:40 21:40 PT with INR INR PTT (Actin FS) Sodium Potassium Chloride Carbon Dioxide Anion Gap BUN Creatinine Creat Clearance w eGFR Random Glucose Lactic Acid 0.9 Calcium Total Bilirubin AST ALT Alkaline Phosphatase Creatine Kinase Troponin I B-Natriuretic Peptide 514.50 H Total Protein Albumin Blood Type AB POSITIVE Antibody Screen Negative 05/11/17 05/11/17 21:40 21:40 PT with INR 11.00 INR 0.97 PTT (Actin FS) 31.6 Sodium 139 Potassium 4.0 Chloride 105 Carbon Dioxide 28 Anion Gap 6 L BUN 13 Creatinine 0.8 Creat Clearance w eGFR > 60 Random Glucose 106 D Lactic Acid Calcium 8.8 Total Bilirubin 0.3 D AST 31 D ALT 11 L D Alkaline Phosphatase 45 Creatine Kinase 118 Troponin I 0.02 B-Natriuretic Peptide Total Protein 6.0 L Albumin 3.4 Blood Type Antibody Screen 05/11/17 21:40 RBC 4.14 MCV 92.9 MCHC 33.2 RDW 13.6 MPV 8.1 D Neutrophils % 46.3 Lymphocytes % 38.9 Monocytes % 14.2 H Eosinophils % 0.3 D Basophils % 0.3 - Medications Given in the ED: ED Medications Discontinued Medications Generic Name Dose Route Start Last Admin Trade Name Freq PRN Reason Stop Dose Admin Albuterol/Ipratropium 1 amp 05/11/17 21:47 05/11/17 22:32 Duoneb - NEB 05/11/17 21:48 1 amp ONCE ONE Administration Sodium Chloride 1,000 mls @ 1,000 mls/hr 05/11/17 21:16 05/11/17 23:21 Normal Saline - IV 05/11/17 22:15 Not Given ASDIR STA <Aurea Patrick - Last Filed: 05/11/17 23:31> - LABORATORY CBC & Chemistry Diagram: 05/11/17 21:40 05/11/17 21:40 <Chika Avila - Last Filed: 05/12/17 00:41> Medical Decision Making - Medical Decision Making 05/11/17 22:19 a/p: 87yo male with cough/fever -started on abx yesterday - amox -will check labs, cultures, ekg, cxr -suspect pna given coarse bs b/l -will give neb to assist with SOB -PMD is Dr. Woods -will most likely need admission -fever since MAGALY 05/12/17 00:38 pt feeling much better lungs cta after neb flu a + cxr clear stable for d/c to home. discussed stopping abx discussed good hand washing, po intake, drinking plenty of fluids pt and fam requesting to take pt home <Chika Avila - Last Filed: 05/12/17 00:41> *DC/Admit/Observation/Transfer - Attestations Scribe Attestion: 05/11/17 23:32 Documentation prepared by Aurea Patrick, acting as biomedical engineering technologist for Chika Avila DO. <Aurea Patrick - Last Filed: 05/11/17 23:31> - Discharge Dispostion Admit: No - Attestations Physician Attestion: 05/12/17 00:41 I, Dr. Chika Avila DO, attest that this document has been prepared under my direction and personally reviewed by me in its entirety. I further attest, that it accurately reflects all work, treatment, procedures and medical decision -making performed by me. <Chika Avila - Last Filed: 05/12/17 00:41> Diagnosis at time of Disposition: Influenza A - Discharge Dispostion Disposition: HOME Condition at time of disposition: Stable - Prescriptions Prescriptions: Albuterol Sulfate Inhaler - [Ventolin HFA Inhaler -] 1 - 2 inh PO Q4H PRN #1 inhaler PRN Reason: Wheezing Inhaler, Assist Devices [Space Chamber Plus] 1 each MC QID PRN #1 spacer PRN Reason: Wheezing - Referrals Referrals: Daniel Woods MD [Primary Care Provider] - - Patient Instructions Printed Discharge Instructions: DI for Influenza -- Adult Additional Instructions: Please follow up with Dr. Woods in 2 days. Please drink plenty of fluids. Please return to the ED with any further complaints. Please use all meds as prescribed.
[2017-05-11 21:58] LABS: BASO % 0.3 % (0-2.0); EOS % 0.3 % (0-4.5); HEMATOCRIT 38.5 % (35.4-49); HEMOGLOBIN 12.8 GM/dL (11.7-16.9); LYMPH % 38.9 % (8-40); MCH 30.8 pg (25.7-33.7); MCHC 33.2 g/dl (32.0-35.9); MEAN CELL VOLUME 92.9 fl (80-96); MEAN PLT VOLUME 8.1 fl (7.5-11.1); MONO % 14.2 % (3.8-10.2); NEUT % 46.3 % (42.8-82.8); PLATELET COUNT 138 K/MM3 (134-434); RBC 4.14 M/mm3 (4.00-5.60); RDW 13.6 % (11.9-15.9); WHITE BLOOD COUNT 3.2 K/mm3 (4.0-10.0)
[2017-05-11 22:37] LABS: ALBUMIN 3.4 g/dl (3.4-5.0); ANION GAP 6 (8-16); BILIRUBIN,TOTAL 0.3 mg/dL (0.2-1.0); BLOOD UREA NITROGEN 13 mg/dL (7-18); CALCIUM 8.8 mg/dL (8.5-10.1); CHLORIDE 105 mmol/L (98-107); CO2 28 mmol/L (21-32); CREATININE 0.8 mg/dL (0.7-1.3); GLUCOSE,RANDOM 106 mg/dL (74-106); SGOT/AST 31 U/L (15-37); SODIUM 139 mmol/L (136-145)
[2017-05-11 22:42] LABS: ALK PHOS 45 U/L (45-117); SGPT/ALT 11 U/L (12-78)
[2017-05-11] MEDS ORDERED: LEVOFLOXACIN 750 MG IVPB 750 MG/150 ML BAG IVPB ONE ×2 (22:47→23:28)
[2017-05-11 22:59] LABS: INR 0.97 (0.82-1.09)
[2017-05-11 23:02] LABS: ACTIVATED PTT 31.6 SECONDS (26.9-34.4)
--- NOTE | 2017-05-12 12:29 | EKG ---
Test Reason : Blood Pressure : / mmHG Vent. Rate : 067 BPM Atrial Rate : 068 BPM P-R Int : 000 ms QRS Dur : 092 ms QT Int : 410 ms P-R-T Axes : 000 037 041 degrees QTc Int : 433 ms POOR DATA QUALITY, INTERPRETATION MAY BE ADVERSELY AFFECTED NORMAL SINUS RHYTHM PREMATURE ATRIAL COMPLEXES PREMATURE VENTRICULAR COMPLEXES Confirmed by EMILY THACKER MD ([id number]) on 05/12/2017 12:28:51 PM Referred By: Confirmed By:EMILY THACKER MD
== END 2017-05-12 01:01 | disposition home or self-care (01) ==
LOC: JER 20:55
PROC: 3E0F7GC Introduction of Other Therapeutic Substance into Respiratory Tract, Via Natural or Artificial Opening (ICD-10-PCS; principal; 2017-05-11)
PROC: 3E03329 Introduction of Other Anti-infective into Peripheral Vein, Percutaneous Approach (ICD-10-PCS; 2017-05-11)
DX: J10.1 Influenza due to other identified influenza virus with other respiratory manifestations (principal); I10 Essential (primary) hypertension; G20 Parkinson's disease; Z85.46 Personal history of malignant neoplasm of prostate
CPT/HCPCS: 36415; 71045-TC; 80053; 82550; 83605; 83880; 84484; 85025; 85610; 85730; 86850; 86900; 86901; 87040; 87804; 93005; 93010; 99282-25

== ENCOUNTER 2017-07-23 20:09 | Inpatient (IN) | payer OTHER, MEDICARE ==
--- NOTE | 2017-07-23 20:49 | PDOC ---
History of Present Illness - General History Source: Patient, Family, Old Records Exam Limitations: No Limitations - History of Present Illness Initial Comments: 07/23/17 23:06 Patient is an 87 year old male with a significant past medical history of Parkinson's, hypertension, who presents to the ED with complaints of right hip pain that began this afternoon. Patient reports falling yesterday afternoon while shopping but states he did not experience any pain until this evening when he began to experience gradual right hip pain, prompting him to come into the ED for further evaluation. Patient's daughter reports patients fall was witness by his and was told he did not hit his head when he fell. Patient reports not remembering much from the fall but does state he lost his balance and tripped and landed on his right arm and hip. Denies chest pain, Sob. Denies nausea, vomiting. Denies fever, chills. Denies diarrhea, constipation, dysuria, hematuria. Denies contact with sick individuals , out of state travelling. Denies any other symptoms. Allergies: NKDA Social History: Non smoker. No ETOH or recreational drug use. Past Surgical History: THR; right shoulder surgery. PCP: Dr. Woods <Kd Garrido - Last Filed: 07/23/17 23:19> <Etta Galeas - Last Filed: 07/24/17 20:09> - General Chief Complaint: Injury Stated Complaint: FALL INJURY Time Seen by Provider: 07/23/17 20:32 Past History <Kd Garrido - Last Filed: 07/23/17 23:19> - Past Medical History Anemia: No Asthma: No Cancer: Yes (prostate CA) Cardiac Disorders: Yes (SICK SINUS SYNDROME) COPD: No HTN: Yes Other medical history: Parkinsons DX - Surgical History Orthopedic Surgery: Yes (THR;RIGHT SHOULDER SURGERY) - Suicide/Smoking/Psychosocial Hx Smoking Status: No Smoking History: Former smoker Years of Tobacco Use: 0 Have you smoked in the past 12 months: No Number of Cigarettes Smoked Daily: 0 If you are a former smoker, when did you quit?: 70 years ago Information on smoking cessation initiated: No Hx Alcohol Use: No Drug/Substance Use Hx: No Substance Use Type: None Hx Substance Use Treatment: No <Etta Galeas - Last Filed: 07/24/17 20:09> - Past Medical History Allergies/Adverse Reactions: Allergies Allergy/AdvReac Type Severity Reaction Status Date / Time No Known Allergies Allergy Verified 07/23/17 20:28 Home Medications: Ambulatory Orders Amlodipine Besylate [Norvasc -] 2.5 mg PO DAILY 08/17/16 Bicalutamide 50 mg PO DAILY 08/17/16 Carbidopa/Levodopa [Carbidopa-Levo ER 50-200 Tab] 1 each PO DAILY 08/17/16 Carbidopa/Levodopa [Carbidopa-Levodopa 25-250 Tab] 1 each PO BID 08/17/16 Physical Therapy Order 1 each NR ASDIR #1 order 08/19/16 Inhaler, Assist Devices [Space Chamber Plus] 1 each MC QID PRN #1 spacer Amantadine HCl [Amantadine] 100 mg PO BID 07/23/17 Citalopram Hydrobromide [Citalopram HBr] 10 mg PO DAILY 07/23/17 Review of Systems - Review of Systems Able to Perform ROS?: Yes Comments:: 07/23/17 23:06 GENERAL/CONSTITUTIONAL: No fever or chills. No weakness. HEAD, EYES, EARS, NOSE AND THROAT: No change in vision. No ear pain or discharge. No sore throat. CARDIOVASCULAR: No chest pain or shortness of breath. RESPIRATORY: No cough, wheezing, or hemoptysis. GASTROINTESTINAL: +Right lower quadrant pain. +Right groin pain. No nausea, vomiting, diarrhea or constipation. GENITOURINARY: No dysuria, frequency, or change in urination. MUSCULOSKELETAL: +Right hip pain. No joint or muscle swelling. No neck or back pain. SKIN: No rash NEUROLOGIC: No headache, vertigo, loss of consciousness, or change in strength/ sensation. ENDOCRINE: No increased thirst. No abnormal weight change. HEMATOLOGIC/LYMPHATIC: No anemia, easy bleeding, or history of blood clots. ALLERGIC/IMMUNOLOGIC: No hives or skin allergy. <Kd Garrido - Last Filed: 07/23/17 23:19> *Physical Exam - Vital Signs Last Vital Signs Temp Pulse Resp BP Pulse Ox 98 F 67 16 177/72 99 07/23/17 20:15 07/23/17 20:15 07/23/17 20:15 07/23/17 20:15 07/23/17 20:15 <Kd Garrido - Last Filed: 07/23/17 23:19> - Vital Signs Last Vital Signs Temp Pulse Resp BP Pulse Ox 98 F 67 16 177/72 99 07/23/17 20:15 07/23/17 20:15 07/23/17 20:15 07/23/17 20:15 07/23/17 20:15 <Etta Galeas - Last Filed: 07/24/17 20:09> ED Treatment Course - LABORATORY CBC & Chemistry Diagram: 07/23/17 22:39 07/23/17 22:39 - ADDITIONAL ORDERS Additional order review: 07/23/17 22:39 RBC 4.28 MCV 93.7 MCHC 33.7 RDW 13.1 Neutrophils % 69.4 D Lymphocytes % 17.8 D Monocytes % 9.2 Eosinophils % 3.3 D Basophils % 0.3 - Medications Given in the ED: ED Medications Discontinued Medications Generic Name Dose Route Start Last Admin Trade Name Freq PRN Reason Stop Dose Admin Oxycodone/Acetaminophen 2 combo 07/23/17 21:19 07/23/17 22:42 Percocet 5/325 - PO 07/23/17 21:20 2 combo ONCE ONE Administration <Kd Garrido - Last Filed: 07/23/17 23:19> - LABORATORY CBC & Chemistry Diagram: 07/24/17 06:08 07/24/17 06:08 <Etta Galeas - Last Filed: 07/24/17 20:09> Medical Decision Making - Medical Decision Making 07/23/17 23:[address] Woods @23:[address] 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 Awaiting call back. <Kd Garrido - Last Filed: 07/23/17 23:19> - Medical Decision Making 07/23/17 23:02 Patient Name: ARELI GUEVARA THIS IS A PRELIMINARY REPORT FROM [facility] DATE OF SERVICE: 2017-07-23 22:06:56 IMAGES: 150 EXAM: CT head noncontrast HISTORY: Fall COMPARISON: None. FINDINGS: There is no intra or extra-axial hemorrhage or collection. No mass lesion or midline shift. Old right basal ganglia lacunar infarct There is moderate cortical atrophy. The ventricles are not enlarged and are midline in position Normal south-white matter differentiation. Areas of low attenuation in the periventricular white matter and bilateral external capsules are compatible with chronic microvascular ischemic changes. The calvarium is intact. The visualized paranasal sinuses and mastoid air cells are clear. THIS DOCUMENT HAS BEEN ELECTRONICALLY SIGNED 07/23/17 23:03 Patient Name: ARELI GUEVARA THIS IS A PRELIMINARY REPORT FROM [facility] DATE OF SERVICE: 2017-07-23 21:34:46 IMAGES: 3 EXAM: HIP-RIGHT / PELVIS HISTORY: Fall. Pain COMPARISON: None. FINDINGS: The bones are demineralized There is no fracture or dislocation Total right hip arthroplasty with the prosthetic components intact and in normal alignment The visualized portions of the bony pelvis are intact The soft tissues are grossly normal THIS DOCUMENT HAS BEEN ELECTRONICALLY SIGNED 07/23/17 23:04 CBC is normal. Chem is pending, however the machines are down at the lab, so we will discharge the patient home and he can follow with PMD. 07/24/17 20:08 Pt unable to bear weight on the right leg and he is unstable and in pain. He cannot walk. So he will be admitted to observation and for ortho eval, as well as eval by his PMD. <Etta Galeas - Last Filed: 07/24/17 20:09> *DC/Admit/Observation/Transfer - Attestations Scribe Attestion: 07/23/17 23:07 GENERAL: Awake, alert, and fully oriented, in no acute distress HEAD: No signs of trauma EYES: PERRLA, EOMI, sclera anicteric, conjunctiva clear ENT: Auricles normal inspection, hearing grossly normal, nares patent, oropharynx clear without exudates. Moist mucosa NECK: Normal ROM, supple, no lymphadenopathy, JVD, or masses LUNGS: Breath sounds equal, clear to auscultation bilaterally. No wheezes, and no crackles HEART: Regular rate and rhythm, normal S1 and S2, no murmurs, rubs or gallops ABDOMEN: +RLQ tenderness. +Right groin pain. Soft, nontender, normoactive bowel sounds. No guarding, no rebound. No masses MUSCULOSKELETAL: +Lower back paraspinal tenderness. No C spine tenderness. EXTREMITIES: +To much hip pain to lift his own hip. Normal range of motion, no edema. No clubbing or cyanosis. No cords, erythema, or tenderness NEUROLOGICAL: Cranial nerves II through XII grossly intact. Normal speech, normal gait SKIN: Warm, Dry, normal turgor, no rashes or lesions noted. <Kd Garrido - Last Filed: 07/23/17 23:19> - Discharge Dispostion Admit: Yes <Etta Galeas - Last Filed: 07/24/17 20:09> Diagnosis at time of Disposition: Musculoskeletal pain, Inability to bear weight, Inability to ambulate due to hip - Discharge Dispostion Condition at time of disposition: Guarded
[2017-07-23 22:51] LABS: BASO % 0.3 % (0-2.0); EOS % 3.3 % (0-4.5); HEMATOCRIT 40.1 % (35.4-49); HEMOGLOBIN 13.5 GM/dL (11.7-16.9); LYMPH % 17.8 % (8-40); MCH 31.6 pg (25.7-33.7); MCHC 33.7 g/dl (32.0-35.9); MEAN CELL VOLUME 93.7 fl (80-96); MONO % 9.2 % (3.8-10.2); NEUT % 69.4 % (42.8-82.8); RBC 4.28 M/mm3 (4.00-5.60); RDW 13.1 % (11.9-15.9); WHITE BLOOD COUNT 7.7 K/mm3 (4.0-10.0)
[2017-07-23 23:11] LABS: ALBUMIN 3.9 g/dl (3.4-5.0); ANION GAP 13 (8-16); BILIRUBIN,TOTAL 0.7 mg/dL (0.2-1.0); BLOOD UREA NITROGEN 15 mg/dL (7-18); CALCIUM 9.5 mg/dL (8.5-10.1); CHLORIDE 104 mmol/L (98-107); CO2 25 mmol/L (21-32); CREATININE 0.8 mg/dL (0.7-1.3); GLUCOSE,RANDOM 97 mg/dL (74-106); POTASSIUM 4.5 mmol/L (3.5-5.1); SGOT/AST 20 U/L (15-37); SGPT/ALT 10 U/L (12-78); SODIUM 142 mmol/L (136-145); TOT PROT 6.8 g/dl (6.4-8.2)
[2017-07-23 23:14] LABS: ALK PHOS 62 U/L (45-117)
[2017-07-23] MEDS ORDERED: KETOROLAC TROMETHAMINE 30 MG/1 ML VIAL IVPUSH ONE (23:15)
[2017-07-23 23:27] LABS: PLATELET ESTIMATE SLT DECREASE
[2017-07-23] MEDS ORDERED: [UNRECOGNIZED DRUG - OTHER] MC PRN (23:37)
[2017-07-23] MEDS ORDERED: morphine SULFATE 4 MG/ML VIAL IVPB PRN (23:40)
[2017-07-23] MEDS ORDERED: ONDANSETRON 4 MG/2 ML VIAL IVPUSH PRN (23:40)
[2017-07-23] MEDS ORDERED: KETOROLAC TROMETHAMINE 30 MG/1 ML VIAL ONE (23:48)
[2017-07-23] MEDS: SODIUM CHLORIDE 1,000 ML IV SCH (23:55)
[2017-07-24 03:36] VITALS: BMI 22.7
[2017-07-24 07:29] LABS: BASO % 0.4 % (0-2.0); EOS % 4.2 % (0-4.5); HEMATOCRIT 35.8 % (35.4-49); HEMOGLOBIN 12.2 GM/dL (11.7-16.9); MCH 31.7 pg (25.7-33.7); MCHC 34.2 g/dl (32.0-35.9); MEAN CELL VOLUME 92.9 fl (80-96); MEAN PLT VOLUME 7.2 fl (7.5-11.1); MONO % 10.8 % (3.8-10.2); NEUT % 58.6 % (42.8-82.8); PLATELET COUNT 114 K/MM3 (134-434); RBC 3.86 M/mm3 (4.00-5.60); RDW 13.3 % (11.9-15.9); WHITE BLOOD COUNT 5.9 K/mm3 (4.0-10.0)
[2017-07-24 08:32] LABS: ALBUMIN 3.2 g/dl (3.4-5.0); ANION GAP 5 (8-16); BLOOD UREA NITROGEN 15 mg/dL (7-18); CALCIUM 7.9 mg/dL (8.5-10.1); CHLORIDE 107 mmol/L (98-107); CO2 27 mmol/L (21-32); CREATININE 0.6 mg/dL (0.7-1.3); GLUCOSE,RANDOM 87 mg/dL (74-106); POTASSIUM 4.2 mmol/L (3.5-5.1); SGOT/AST 11 U/L (15-37); SGPT/ALT 14 U/L (12-78); SODIUM 139 mmol/L (136-145)
[2017-07-24 08:43] LABS: ALK PHOS 51 U/L (45-117); BILIRUBIN,TOTAL 0.8 mg/dL (0.2-1.0); TOT PROT 5.5 g/dl (6.4-8.2)
[2017-07-24] MEDS ORDERED: PT OWN MED DRAWER 7, Y5N ONE (09:27)
[2017-07-24] MEDS: CARBIDOPA/LEVODOPA 25/250 TABLET (FP) PO SCH ×2 (09:29→22:11)
[2017-07-24] MEDS: amLODIPine BESYLATE 2.5 MG TABLET (FP) PO SCH (09:29)
[2017-07-24] MEDS: CITALOPRAM HYDROBROMIDE 10 MG TABLET (FP) PO SCH (09:29)
[2017-07-24] MEDS: BICALUTAMIDE 50 MG TABLET (FP) PO SCH (09:30)
[2017-07-24] MEDS: AMANTADINE HCL 100 MG TABLET PO SCH ×2 (09:31→22:20)
--- NOTE | 2017-07-24 12:01 | HP ---
Admitting History and Physical - Primary Care Physician PCP: Daniel Woods - Admission Chief Complaint: Rt Hip and Shoulder Pain S/P fall History of Present Illness: 87 yrs old man lives at home with ambulates with a walker H/O Parkinson, Dementia, HTN, CA prostate, Rt Hip THR 4-5 yrs ago at [facility], yesterday brought by daughter to evaluate Rt Hip pain and generalized weakness, patient had a mechanical fall on Tuesday evening while walking his cane, lost balance and landed on Rt side , witnessed the fall no LOC, stuck his head on RT side but patient was able to get up and went home daughter gave him tylenol pain improved , yesterday morning patient c/o Rt Hip pain and Rt shoulder pain says couldnt bear weight on Rt foot due to hip pain so came to Ed for evaluation, in the Ed hemodynamically stable, imaging shows no fracture, patient c/o sever pain and tenderness Rt Hip, RT Elbow and Rt Shoulder with weakness, couldnt got up from the bed admitted for observation and evaluation, I spoke to daughter about details of his past history and this episode. No C/O Chest pain, SOB, palpitation, nausea, occasional chocks while eating or drinking fast. History Source: Patient, Family Member - Past Medical History [employer]: Yes: Dementia, Parkinson's Cardiovascular: Yes: HTN Gastrointestinal: Yes: GERD Psych: Yes: Depression Musculoskeletal: Yes: Chronic low back pain - Past Surgical History Past Surgical History: Yes: Joint Replacement (RT Hip THR Rt Shoulder), Prostatectomy - Smoking History Smoking history: Former smoker Have you smoked in the past 12 months: No Aproximately how many cigarettes per day: 0 If you are a former smoker, when did you quit?: 70 years ago - Alcohol/Substance Use Hx Alcohol Use: No Home Medications - Allergies Allergies/Adverse Reactions: Allergies Allergy/AdvReac Type Severity Reaction Status Date / Time No Known Allergies Allergy Verified 07/23/17 20:28 - Home Medications Home Medications: Ambulatory Orders Amlodipine Besylate [Norvasc -] 2.5 mg PO DAILY 08/17/16 Bicalutamide 50 mg PO DAILY 08/17/16 Carbidopa/Levodopa [Carbidopa-Levo ER 50-200 Tab] 1 each PO DAILY 08/17/16 Carbidopa/Levodopa [Carbidopa-Levodopa 25-250 Tab] 1 each PO BID 08/17/16 Physical Therapy Order 1 each NR ASDIR #1 order 08/19/16 Inhaler, Assist Devices [Space Chamber Plus] 1 each MC QID PRN #1 spacer Amantadine HCl [Amantadine] 100 mg PO BID 07/23/17 Citalopram Hydrobromide [Citalopram HBr] 10 mg PO DAILY 07/23/17 Family Disease History - Family Disease History Family History: Unremarkable Review of Systems - Review of Systems Constitutional: reports: Weakness. denies: Fever, Lethargy, Loss of Appetite Eyes: denies: Blurred Vision, Double Vision HENT: reports: Difficult Swallowing. denies: Ear Discharge, Epistaxis, Mouth Swelling, Nasal Congestion Neck: reports: Stiffness. denies: Decreased ROM, Lumps, Pain on Movement Cardiovascular: denies: Chest Pain, Edema, Palpitations, Shortness of Breath Respiratory: denies: Cough, Exercise Intolerance, Hemoptysis Gastrointestinal: denies: Abdominal Pain, Bloating, Constipation Genitourinary: denies: Burning, Discharge, Dysuria Musculoskeletal: reports: Extremity Pain. denies: Back Pain Integumentary: denies: Blister, Bruising Neurological: reports: Unsteady Gait, Weakness. denies: Change in LOC, Change in Speech, Confusion, Dizziness, Seizure, Syncope, Tremors Endocrine: denies: Excessive Sweating, Flushing Hematology/Lymphatic: denies: Easily Bruised, Excessive Bleeding Psychiatric: reports: Altered Sleep Pattern, Depression. denies: Paranoia, Suicidal Pain Intensity: 4 Physical Examination Vital Signs: Vital Signs Temperature 97.1 F L 07/24/17 06:00 Pulse Rate 53 L 07/24/17 06:00 Respiratory Rate 20 07/24/17 06:00 Blood Pressure 151/68 07/24/17 06:00 O2 Sat by Pulse Oximetry (%) 93 L 07/24/17 02:45 Elderly man c/o Rt Hip and shoulder pain HEENT: Snmall bruise at Rt Temporal area, no echymoses or conjunctiva bleed, no anemai, PERRLA NECK: Mild pain passive movement, no stiffness, Carotid Pulses +, No Bruit CHEST: No tender CTA B/L CVS: S1S2 R no m/g/r ABD: No distention, non tender Bs + EXT: Rt Hip no Deformity painful passive movement, Rt Shoulder No deformity painfiul passive movement, Pulse +, No calf tenderness [employer]: AOX3, some memory loss, cranial N normal, No Gross motor sensory weakness Labs: CBC, BMP 07/24/17 06:08 07/24/17 06:08 Imaging - Results Chest X-ray: Report Reviewed (No infiltrate, fracture or congestion) X-ray: Report Reviewed (Rt HIP; S/P Implant no fracture or subluxation Pelvis: No fractuare or deformity) Cat Scan: Report Reviewed (Head; No acute intracranial pathology) EKG: Report Reviewed (55 NSR TN 204 QTC 455 axis 61 No acute chnages) Problem List - Problems (1) Inability to ambulate due to hip Assessment/Plan: C/O Hip Pain s/p Fall no fracture or sub-laxation of implant, pain control, Orthopaedics consult, PT Evaluation Code(s): R26.2 - DIFFICULTY IN WALKING, NOT ELSEWHERE CLASSIFIED (2) HTN (hypertension) Assessment/Plan: Well controlled cont amlodipine at home dose Code(s): I10 - ESSENTIAL (PRIMARY) HYPERTENSION (3) Parkinson disease Assessment/Plan: Known case of Parkinson cont Home meds at same doses Code(s): G20 - PARKINSON'S DISEASE (4) Dementia Assessment/Plan: Patient has erlt Dementia with labile mood On Citalopram Code(s): F03.90 - UNSPECIFIED DEMENTIA WITHOUT BEHAVIORAL DISTURBANCE (5) Compression fracture of L1 lumbar vertebra Assessment/Plan: Cont pain meds no Neurological deficit, Code(s): S32.010A - WEDGE COMPRESSION FRACTURE OF FIRST LUMBAR VERTEBRA, INIT Qualifiers: Encounter type: initial encounter Fracture type: closed Qualified Code(s) : S32.010A - Wedge compression fracture of first lumbar vertebra, initial encounter for closed fracture (6) CA of prostate Assessment/Plan: Cont Home3 Medication Code(s): C61 - MALIGNANT NEOPLASM OF PROSTATE (7) Difficulty in swallowing Assessment/Plan: aspiration precautions, speech and swallow evaluation Code(s): R13.10 - DYSPHAGIA, UNSPECIFIED (8) Acute bronchitis Assessment/Plan: Augmentin, Duoneb PRN Code(s): J20.9 - ACUTE BRONCHITIS, UNSPECIFIED
[2017-07-24] MEDS: AMOX TR/POT CLAV 500MG/125MG TABLETS (FP) PO SCH (17:38)
[2017-07-24] MEDS ORDERED: FLU VACCINE QUAD 60 MCG/0.5 ML (MDV 17-18) IM ONE (18:00)
--- NOTE | 2017-07-24 23:57 | EKG ---
Test Reason : Blood Pressure : / mmHG Vent. Rate : 055 BPM Atrial Rate : 055 BPM P-R Int : 204 ms QRS Dur : 098 ms QT Int : 476 ms P-R-T Axes : 085 061 074 degrees QTc Int : 455 ms SINUS BRADYCARDIA WITH MARKED SINUS ARRHYTHMIA OTHERWISE NORMAL ECG WHEN COMPARED WITH ECG OF 11-MAY-2017 21:27, SINUS RHYTHM HAS REPLACED ATRIAL FIBRILLATION Confirmed by YON SALINAS MD ([id number]) on 07/24/2017 11:57:28 PM Referred By: Confirmed By:YON SALINAS MD
[2017-07-25 07:47] LABS: ANION GAP 10 (8-16); BLOOD UREA NITROGEN 14 mg/dL (7-18); CALCIUM 8.8 mg/dL (8.5-10.1); CHLORIDE 107 mmol/L (98-107); CO2 24 mmol/L (21-32); CREATININE 0.6 mg/dL (0.7-1.3); GLUCOSE,RANDOM 94 mg/dL (74-106); POTASSIUM 4.1 mmol/L (3.5-5.1); SODIUM 141 mmol/L (136-145)
[2017-07-25 08:02] LABS: BASO % 0.2 % (0-2.0); EOS % 3.7 % (0-4.5); HEMATOCRIT 35.8 % (35.4-49); HEMOGLOBIN 12.2 GM/dL (11.7-16.9); LYMPH % 21.9 % (8-40); MCH 31.7 pg (25.7-33.7); MCHC 34.2 g/dl (32.0-35.9); MEAN CELL VOLUME 92.8 fl (80-96); MEAN PLT VOLUME 7.6 fl (7.5-11.1); MONO % 9.2 % (3.8-10.2); PLATELET COUNT 119 K/MM3 (134-434); RBC 3.86 M/mm3 (4.00-5.60); WHITE BLOOD COUNT 6.7 K/mm3 (4.0-10.0)
--- NOTE | 2017-07-25 08:08 | CONSULT ---
Consult Reason for Consultation:: Pain right hip - History of Present Illness History of Present Illness: 87y/o male with history of parkinsons c/o right hip pain after falling 3 days ago. He began having pain the next day which continued to get worse and went to the ER. The pain is worse with weight bearing and better with rest. Today he states he is feeling better. He denies pain at rest. No other associated, aggravating or relieving factors. - Past Medical History GUIDE TRAVEL: Yes: Dementia, Parkinson's Cardio/Vascular: Yes: HTN Gastrointestinal: Yes: GERD Psych: Yes: Depression Musculoskeletal: Yes: Chronic low back pain - Past Surgical History Past Surgical History: Yes: Joint Replacement (RT Hip THR Rt Shoulder), Prostatectomy - Alcohol/Substance Use Hx Alcohol Use: No - Smoking History Smoking history: Former smoker Have you smoked in the past 12 months: No Aproximately how many cigarettes per day: 0 If you are a former smoker, when did you quit?: 70 years ago Home Medications - Allergies Allergies/Adverse Reactions: Allergies Allergy/AdvReac Type Severity Reaction Status Date / Time No Known Allergies Allergy Verified 07/23/17 20:28 - Home Medications Home Medications: Ambulatory Orders Amlodipine Besylate [Norvasc -] 2.5 mg PO DAILY 08/17/16 Bicalutamide 50 mg PO DAILY 08/17/16 Carbidopa/Levodopa [Carbidopa-Levo ER 50-200 Tab] 1 each PO DAILY 08/17/16 Carbidopa/Levodopa [Carbidopa-Levodopa 25-250 Tab] 1 each PO BID 08/17/16 Physical Therapy Order 1 each NR ASDIR #1 order 08/19/16 Inhaler, Assist Devices [Space Chamber Plus] 1 each MC QID PRN #1 spacer Amantadine HCl [Amantadine] 100 mg PO BID 07/23/17 Citalopram Hydrobromide [Citalopram HBr] 10 mg PO DAILY 07/23/17 Review of Systems - Review of Systems Constitutional: reports: No Symptoms Eyes: reports: No Symptoms HENT: reports: No Symptoms Neck: reports: No Symptoms Cardiovascular: reports: No Symptoms Respiratory: reports: No Symptoms Gastrointestinal: reports: No Symptoms Genitourinary: reports: No Symptoms Breasts: reports: No Symptoms Reported Musculoskeletal: reports: Extremity Pain Integumentary: reports: No Symptoms Neurological: reports: No Symptoms Endocrine: reports: No Symptoms Hematology/Lymphatic: reports: No Symptoms Psychiatric: reports: No Symptoms Physical Exam Vital Signs: Vital Signs Temperature 98.3 F 07/25/17 06:37 Pulse Rate 63 07/25/17 06:37 Respiratory Rate 20 07/25/17 06:37 Blood Pressure 166/74 07/25/17 06:37 O2 Sat by Pulse Oximetry (%) 94 L 07/24/17 21:00 Constitutional: Yes: Well Nourished, No Distress, Calm Musculoskeletal: Yes: Other (right lower extremity: No erythema, edema or ecchymosis. He has smooth ROM of the right hip without pain. He is able to fully flex the hip. Full ROM of the knee and ankle. Compartments are soft. Calf nontender. Negative aziza's sign. NVID.) Labs: CBC, BMP 07/25/17 05:35 Imaging - Results X-ray: Report Reviewed, Image Reviewed (No fracture, BRIGIDA in place) Assessment/Plan #1 right hip pain s/p fall without fracture or dislocation -Recommend PT WBAT -Pain control -DVT prophaxis -please reconsult if needed.
[2017-07-25] MEDS: ALBUTEROL SO4 2.5/IPRATROPIUM 0.5 INH SOL 3 ML VIAL.NEB. NEB PRN (08:13)
[2017-07-25] MEDS ORDERED: FLU VACCINE QUAD 60 MCG/0.5 ML (MDV 17-18) IM ONE (09:00)
[2017-07-25] MEDS ORDERED: PT OWN MED DRAWER 7, Y5N ONE ×2 (10:29→10:55)
[2017-07-25] MEDS: SODIUM CHLORIDE 1,000 ML IV SCH (10:37)
[2017-07-25] MEDS: AMOX TR/POT CLAV 500MG/125MG TABLETS (FP) PO SCH ×2 (10:38→18:45)
[2017-07-25] MEDS: CITALOPRAM HYDROBROMIDE 10 MG TABLET (FP) PO SCH (10:39)
[2017-07-25] MEDS: BICALUTAMIDE 50 MG TABLET (FP) PO SCH (10:39)
[2017-07-25] MEDS: amLODIPine BESYLATE 2.5 MG TABLET (FP) PO SCH (10:40)
[2017-07-25] MEDS: CARBIDOPA/LEVODOPA 25/250 TABLET (FP) PO SCH ×2 (10:40→22:17)
[2017-07-25] MEDS: ENOXAPARIN NA (PORCINE) 40 MG/0.4 ML DISP.SYRIN SQ SCH (10:40)
[2017-07-25] MEDS: AMANTADINE HCL 100 MG TABLET PO SCH ×2 (10:41→22:18)
--- NOTE | 2017-07-25 12:08 | PN ---
Progress Note, Physician Chief Complaint: Mr Santos says he is feeling fine when he is still, no cp, sob, or n/v. Pain on ambulation. - Current Medication List Current Medications: Active Medications Albuterol/Ipratropium (Duoneb -) 1 amp NEB RTID PRN PRN Reason: ASTHMA Last Admin: 07/25/17 08:13 Dose: 1 amp Amantadine HCl (Symmetrel -) 100 mg PO BID [facility] Last Admin: 07/25/17 10:41 Dose: 100 mg Amlodipine Besylate (Norvasc -) 2.5 mg PO DAILY [facility] Last Admin: 07/25/17 10:40 Dose: 2.5 mg Amoxicillin/Clavulanate Potassium (Augmentin - 500mg Tablet) 1 tab PO BID@0800, 1730 [facility] Last Admin: 07/25/17 10:38 Dose: 1 tab Bicalutamide (Casodex -) 50 mg PO DAILY [facility] Last Admin: 07/25/17 10:39 Dose: 50 mg Carbidopa/Levodopa (Sinemet *Cr* 50/200 -) 1 combo PO DAILY [facility] Last Admin: 07/25/17 10:39 Dose: 1 combo Carbidopa/Levodopa (Sinemet 25/250 -) 1 each PO BID [facility] Last Admin: 07/25/17 10:40 Dose: 1 each Citalopram Hydrobromide (Celexa -) 10 mg PO DAILY [facility] Last Admin: 07/25/17 10:39 Dose: 10 mg Enoxaparin Sodium (Lovenox -) 40 mg SQ DAILY [facility] Last Admin: 07/25/17 10:40 Dose: 40 mg Morphine Sulfate (Morphine Sulfate) 1 mg IVPB Q6H PRN PRN Reason: PAIN Ondansetron HCl (Zofran Injection) 4 mg IVPUSH Q6H PRN PRN Reason: NAUSEA - Objective Vital Signs: Vital Signs Temperature 36.8 C 07/25/17 06:37 Pulse Rate 63 07/25/17 06:37 Respiratory Rate 20 07/25/17 06:37 Blood Pressure 166/74 07/25/17 06:37 O2 Sat by Pulse Oximetry (%) 94 L 07/24/17 21:00 Constitutional: Yes: Well Nourished, No Distress, Calm Cardiovascular: Yes: Regular Rate and Rhythm. No: Gallop, Murmur, Rub Respiratory: Yes: Regular, CTA Bilaterally. No: Rales, Rhonchi, Wheezes Gastrointestinal: Yes: Normal Bowel Sounds, Soft. No: Distention, Tenderness Extremities: Yes: WNL Edema: No Labs: CBC, BMP 07/25/17 05:35 07/25/17 05:35 Problem List - Problems (1) Inability to ambulate due to hip Assessment/Plan: -patient with fall and inability to walk -PT evaluated, walked less than 25 feet -unsafe discharge home -will admit as inpatient -control pain with prn oxycodone -continue PT -if does not improve significantly, plan for SNF placement Code(s): R26.2 - DIFFICULTY IN WALKING, NOT ELSEWHERE CLASSIFIED (2) Acute bronchitis Assessment/Plan: -continue augmentin and duonebs -improved Code(s): J20.9 - ACUTE BRONCHITIS, UNSPECIFIED (3) CA of prostate Assessment/Plan: -continue casodex Code(s): C61 - MALIGNANT NEOPLASM OF PROSTATE (4) Dementia Assessment/Plan: -baseline -continue home regimen Code(s): F03.90 - UNSPECIFIED DEMENTIA WITHOUT BEHAVIORAL DISTURBANCE (5) Difficulty in swallowing Assessment/Plan: -speech therapy consult Code(s): R13.10 - DYSPHAGIA, UNSPECIFIED (6) HTN (hypertension) Assessment/Plan: -continue norvasc Code(s): I10 - ESSENTIAL (PRIMARY) HYPERTENSION (7) Parkinson disease Assessment/Plan: -continue home regimen Code(s): G20 - PARKINSON'S DISEASE
--- NOTE | 2017-07-25 12:37 | CONSULT ---
Admitting History and Physical - Primary Care Physician PCP: Blas Pryor - Admission History of Present Illness: Pt admitted with right hip pain s/p fall without fracture or dislocation. Pt reports occasional chocking while eating or drinking fast. Selected Entries 07/24/17 07/24/17 07/24/17 02:45 06:00 09:00 Breakfast Diet Tolerated Lunch Supper Temperature 97.5 F L 97.1 F L 98.1 F 07/24/17 07/24/17 07/24/17 10:19 14:27 17:16 Breakfast 100% Diet Tolerated Lunch 75% Supper Temperature 99.1 F 100.6 F H 07/24/17 07/25/17 07/25/17 18:32 06:37 12:10 Breakfast 0 Diet Tolerated Refused Lunch Supper 50% Temperature 98.3 F Laboratory Tests 07/24/17 07/25/17 06:08 05:35 WBC 5.9 6.7 Seen 07/30/14 for out pt MBS, at which time there was no aspiration but mild stasis on solids. Pt was hoarse and did drink a lot of coffee, and laryngopharyngeal reflux was suspected. Pt reports coughing at times during meals,. 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: Yes: Parkinson's Cardiovascular: Yes: HTN Gastrointestinal: Yes: GERD Psych: Yes: Depression Musculoskeletal: Yes: Chronic low back pain - Past Surgical History Past Surgical History: Yes: Joint Replacement (RT Hip THR Rt Shoulder), Prostatectomy - Smoking History Smoking history: Former smoker Have you smoked in the past 12 months: No Aproximately how many cigarettes per day: 0 If you are a former smoker, when did you quit?: 70 years ago - Alcohol/Substance Use Hx Alcohol Use: No History - Admission Reason For Visit: FALL INABILITY TO AMBULATE TO HIP - Diagnostics X-ray: Report Reviewed Modified Barium Swallow: Report Reviewed - General Mental Status: Alert and Oriented, Awake and Alert, Able to Follow Commands Attention: Intact Ability to Follow Directions: Good Head/Neck Control: WFL - Hearing Hearing: Normal Speech Evaluation - Communication Primary Language: [place] Communication: Yes: Within Normal Limits Oral Expression Ability: Yes: No Impairment - Speech Production Able to Make Needs Known: Yes: WNL Intelligibility: Yes: WNL - Speech Characteristics Voice Loudness: Normal Voice Pitch: Yes: Normal Voice Phonatory-based Quality: Yes: Normal Speech Pattern: Normal Speech Clarity: < 100% Nasal Resonance: Normal Articulation: Yes: Precise - Language/Auditory Comprehension Follows: Yes: 1 Stage Simple Commands - Language/Verbal Expression Able to Respond to Simple Queries: Yes: WNL Able to Communicate Wants and Needs: Yes: WNL Functional Communication Status: Yes: WNL - Swallow Evaluation/Bedside Assessment Current Nutritional Intake: Regular, Thin Liquids Oral Secretions: Yes: WFL Dentition: Yes: Dental Appliance Upper, Dental Appliance Lower Facial Symmetry at Rest: Symmetrical Facial Symmetry on Retraction: Symmetrical Facial Movement: Controlled Against Resistance Opening: Normal Against Resistance Closing: Normal Pucker Lips: Normal Smile: Normal Lingual Movement: Normal, Symmetric Lingual Speed of Movement: Normal Lingual Movement Strgth Against Opposition: Normal Lingual Movement Characteristics: Normal Velopharyngeal Movement: Normal Laryngeal Elevation: WFL Laryngeal Movement: Able to Palpate Rate of Intake: WFL Bolus Size: WFL Labial Seal: WFL Chewing: WFL Oral Prep Time: WFL A-P Transit: WFL Pocketing: None Timing of Swallow: WFL Coughing/Throat Clear: No Change in Voice: No Recommendations - Speech Evaluation, Impression/Plan Impression: Swallowing overtly intact. Pt reports coughing meal time at home intermittently, especially on meat. - Dysphagia Impressions/Plan Dysphagia Impressions: Minimal Impairment, Ongoing Evaluation *Silent aspiration: cannot be R/O at bedside Dysphagia Treatment Plan: Elevate HOB during feed, OOB for meals (if possible) Recommendations: MBS w Esophagus (as out pt, if difficulty persists) - Recommendations Diet Consistency: Regular (soft. Chopped meaT WITH GRAVY.) Medication Administration: Whole with water Liquids: Thin Liquids
[2017-07-25] MEDS ORDERED: LEUPROLIDE ACETATE 22.5 MG DIS IM ONE (15:38)
[2017-07-25] MEDS: oxyCODONE HCL 5 MG TABLET PO PRN (18:45)
[2017-07-26 07:43] LABS: ANION GAP 8 (8-16); BLOOD UREA NITROGEN 17 mg/dL (7-18); CALCIUM 8.8 mg/dL (8.5-10.1); CHLORIDE 106 mmol/L (98-107); CO2 27 mmol/L (21-32); CREATININE 0.6 mg/dL (0.7-1.3); GLUCOSE,RANDOM 96 mg/dL (74-106); PHOSPHOROUS 2.3 mg/dL (2.5-4.9); POTASSIUM 4.2 mmol/L (3.5-5.1); SODIUM 141 mmol/L (136-145)
[2017-07-26 08:02] LABS: BASO % 0.3 % (0-2.0); EOS % 6.2 % (0-4.5); HEMATOCRIT 35.8 % (35.4-49); HEMOGLOBIN 12.2 GM/dL (11.7-16.9); LYMPH % 26.1 % (8-40); MCH 31.6 pg (25.7-33.7); MEAN CELL VOLUME 92.9 fl (80-96); MEAN PLT VOLUME 7.5 fl (7.5-11.1); MONO % 10.5 % (3.8-10.2); NEUT % 56.9 % (42.8-82.8); PLATELET COUNT 127 K/MM3 (134-434); RBC 3.85 M/mm3 (4.00-5.60); RDW 12.9 % (11.9-15.9); WHITE BLOOD COUNT 5.8 K/mm3 (4.0-10.0)
[2017-07-26] MEDS: ALBUTEROL SO4 2.5/IPRATROPIUM 0.5 INH SOL 3 ML VIAL.NEB. NEB PRN ×3 (09:00→20:40)
[2017-07-26] MEDS ORDERED: PT OWN MED DRAWER 7, Y5N ONE ×2 (09:35→10:28)
[2017-07-26] MEDS: AMOX TR/POT CLAV 500MG/125MG TABLETS (FP) PO SCH ×2 (09:38→16:29)
[2017-07-26] MEDS: ENOXAPARIN NA (PORCINE) 40 MG/0.4 ML DISP.SYRIN SQ SCH (09:39)
[2017-07-26] MEDS: amLODIPine BESYLATE 2.5 MG TABLET (FP) PO SCH (09:39)
[2017-07-26] MEDS: BICALUTAMIDE 50 MG TABLET (FP) PO SCH (09:39)
[2017-07-26] MEDS: CITALOPRAM HYDROBROMIDE 10 MG TABLET (FP) PO SCH (09:39)
[2017-07-26] MEDS: CARBIDOPA/LEVODOPA 25/250 TABLET (FP) PO SCH ×2 (09:40→22:00)
[2017-07-26] MEDS: AMANTADINE HCL 100 MG TABLET PO SCH ×2 (09:40→21:57)
[2017-07-26] MEDS ORDERED: NAPH,MB-DB/K PH,MBDB POWDER PACKET PO ONE (14:43)
--- NOTE | 2017-07-26 14:46 | PN ---
Progress Note, Physician Chief Complaint: Mr Santos says he is feeling better but still with pain on movement. No cp, sob, n/v. - Current Medication List Current Medications: Active Medications Albuterol/Ipratropium (Duoneb -) 1 amp NEB RTID PRN PRN Reason: ASTHMA Last Admin: 07/26/17 09:00 Dose: 1 amp Amantadine HCl (Symmetrel -) 100 mg PO BID [facility] Last Admin: 07/26/17 09:40 Dose: 100 mg Amlodipine Besylate (Norvasc -) 2.5 mg PO DAILY [facility] Last Admin: 07/26/17 09:39 Dose: 2.5 mg Amoxicillin/Clavulanate Potassium (Augmentin - 500mg Tablet) 1 tab PO BID@0800, 1730 [facility] Last Admin: 07/26/17 09:38 Dose: 1 tab Bicalutamide (Casodex -) 50 mg PO DAILY [facility] Last Admin: 07/26/17 09:39 Dose: 50 mg Carbidopa/Levodopa (Sinemet *Cr* 50/200 -) 1 combo PO DAILY [facility] Last Admin: 07/26/17 09:40 Dose: 1 combo Carbidopa/Levodopa (Sinemet 25/250 -) 1 each PO BID [facility] Last Admin: 07/26/17 09:40 Dose: 1 each Citalopram Hydrobromide (Celexa -) 10 mg PO DAILY [facility] Last Admin: 07/26/17 09:39 Dose: 10 mg Enoxaparin Sodium (Lovenox -) 40 mg SQ DAILY [facility] Last Admin: 07/26/17 09:39 Dose: 40 mg Leuprolide Acetate (Lupron Depot 22.5mg -) 22.5 mg IM ONCE ONE Stop: 07/25/17 16:31 Ondansetron HCl (Zofran Injection) 4 mg IVPUSH Q6H PRN PRN Reason: NAUSEA Oxycodone HCl (Roxicodone -) 5 mg PO Q6H PRN PRN Reason: PAIN LEVEL 6-10 Last Admin: 07/25/17 18:45 Dose: 5 mg Potassium Phos/Sodium Phos (Phos-Nak Packet -) 1 packet PO ONCE ONE Stop: 07/26/17 14:44 - Objective Vital Signs: Vital Signs Temperature 36.5 C 07/26/17 06:56 Pulse Rate 60 03/20/18 06:56 Respiratory Rate 20 07/26/17 06:56 Blood Pressure 147/63 07/26/17 06:56 O2 Sat by Pulse Oximetry (%) 96 07/25/17 21:00 Constitutional: Yes: Well Nourished, No Distress, Calm Cardiovascular: Yes: Regular Rate and Rhythm. No: Gallop, Murmur, Rub Respiratory: Yes: Regular, CTA Bilaterally. No: Rales, Rhonchi, Wheezes Gastrointestinal: Yes: Normal Bowel Sounds, Soft. No: Distention, Tenderness Extremities: Yes: WNL Edema: No Labs: CBC, BMP 07/26/17 05:30 07/26/17 05:30 Problem List - Problems (1) Inability to ambulate due to hip Code(s): R26.2 - DIFFICULTY IN WALKING, NOT ELSEWHERE CLASSIFIED (2) Acute bronchitis Code(s): J20.9 - ACUTE BRONCHITIS, UNSPECIFIED (3) CA of prostate Code(s): C61 - MALIGNANT NEOPLASM OF PROSTATE (4) Dementia Code(s): F03.90 - UNSPECIFIED DEMENTIA WITHOUT BEHAVIORAL DISTURBANCE (5) Difficulty in swallowing Code(s): R13.10 - DYSPHAGIA, UNSPECIFIED (6) HTN (hypertension) Code(s): I10 - ESSENTIAL (PRIMARY) HYPERTENSION (7) Parkinson disease Code(s): G20 - PARKINSON'S DISEASE Assessment/Plan (1) Inability to ambulate due to hip Assessment/Plan: -continue PT -continue pain control -patient needs SNF placement for rehab Code(s): R26.2 - DIFFICULTY IN WALKING, NOT ELSEWHERE CLASSIFIED (2) Acute bronchitis Assessment/Plan: -continue augmentin and duonebs -improved Code(s): J20.9 - ACUTE BRONCHITIS, UNSPECIFIED (3) CA of prostate Assessment/Plan: -continue casodex -lupron was due yesterday -CM/SW looking into options of getting patient his dose of lupron in the SNF Code(s): C61 - MALIGNANT NEOPLASM OF PROSTATE (4) Dementia Assessment/Plan: -baseline -continue home regimen Code(s): F03.90 - UNSPECIFIED DEMENTIA WITHOUT BEHAVIORAL DISTURBANCE (5) Difficulty in swallowing Assessment/Plan: -speech therapy consulted and appreciate assistance Code(s): R13.10 - DYSPHAGIA, UNSPECIFIED (6) HTN (hypertension) Assessment/Plan: -continue norvasc Code(s): I10 - ESSENTIAL (PRIMARY) HYPERTENSION (7) Parkinson disease Assessment/Plan: -continue home regimen Code(s): G20 - PARKINSON'S DISEASE (8) Hypophosphatemia -replace
[2017-07-26] MEDS: oxyCODONE HCL 5 MG TABLET PO PRN (22:01)
[2017-07-27] MEDS ORDERED: PT OWN MED DRAWER 7, Y5N ONE ×2 (10:42→21:42)
[2017-07-27] MEDS: ENOXAPARIN NA (PORCINE) 40 MG/0.4 ML DISP.SYRIN SQ SCH (10:48)
[2017-07-27] MEDS: CARBIDOPA/LEVODOPA 25/250 TABLET (FP) PO SCH ×2 (10:48→21:44)
[2017-07-27] MEDS: CITALOPRAM HYDROBROMIDE 10 MG TABLET (FP) PO SCH (10:48)
[2017-07-27] MEDS: amLODIPine BESYLATE 2.5 MG TABLET (FP) PO SCH (10:48)
[2017-07-27] MEDS: AMOX TR/POT CLAV 500MG/125MG TABLETS (FP) PO SCH (10:48)
[2017-07-27] MEDS: AMANTADINE HCL 100 MG TABLET PO SCH ×2 (10:48→21:44)
[2017-07-27] MEDS: BICALUTAMIDE 50 MG TABLET (FP) PO SCH (10:48)
--- NOTE | 2017-07-27 13:53 | PN ---
Progress Note, Physician Chief Complaint: Mr Santos says he is feeling better but still with pain on movement. No cp, sob, n/v. - Current Medication List Current Medications: Active Medications Albuterol/Ipratropium (Duoneb -) 1 amp NEB RTID PRN PRN Reason: ASTHMA Last Admin: 07/26/17 20:40 Dose: 1 amp Amantadine HCl (Symmetrel -) 100 mg PO BID [facility] Last Admin: 07/27/17 10:48 Dose: 100 mg Amlodipine Besylate (Norvasc -) 2.5 mg PO DAILY [facility] Last Admin: 07/27/17 10:48 Dose: 2.5 mg Amoxicillin/Clavulanate Potassium (Augmentin - 500mg Tablet) 1 tab PO BID@0800, 1730 [facility] Last Admin: 07/27/17 10:48 Dose: 1 tab Bicalutamide (Casodex -) 50 mg PO DAILY [facility] Last Admin: 07/27/17 10:48 Dose: 50 mg Carbidopa/Levodopa (Sinemet *Cr* 50/200 -) 1 combo PO DAILY [facility] Last Admin: 07/27/17 10:47 Dose: 1 combo Carbidopa/Levodopa (Sinemet 25/250 -) 1 each PO BID [facility] Last Admin: 07/27/17 10:48 Dose: 1 each Citalopram Hydrobromide (Celexa -) 10 mg PO DAILY [facility] Last Admin: 07/27/17 10:48 Dose: 10 mg Enoxaparin Sodium (Lovenox -) 40 mg SQ DAILY [facility] Last Admin: 07/27/17 10:48 Dose: 40 mg Leuprolide Acetate (Lupron Depot 22.5mg -) 22.5 mg IM ONCE ONE Stop: 07/25/17 16:31 Ondansetron HCl (Zofran Injection) 4 mg IVPUSH Q6H PRN PRN Reason: NAUSEA Oxycodone HCl (Roxicodone -) 5 mg PO Q6H PRN PRN Reason: PAIN LEVEL 6-10 Last Admin: 07/26/17 22:01 Dose: 5 mg - Objective Vital Signs: Vital Signs Temperature 37.2 C 07/27/17 06:00 Pulse Rate 64 07/27/17 06:00 Respiratory Rate 20 07/27/17 06:00 Blood Pressure 134/72 07/27/17 06:00 O2 Sat by Pulse Oximetry (%) 93 L 07/26/17 21:00 Constitutional: Yes: Well Nourished, No Distress, Calm Cardiovascular: Yes: Regular Rate and Rhythm. No: Gallop, Murmur, Rub Respiratory: Yes: Regular, CTA Bilaterally. No: Rales, Rhonchi, Wheezes Gastrointestinal: Yes: Normal Bowel Sounds, Soft. No: Distention, Tenderness Extremities: Yes: WNL Edema: No Labs: CBC, BMP 07/26/17 05:30 07/26/17 05:30 Problem List - Problems (1) Inability to ambulate due to hip Code(s): R26.2 - DIFFICULTY IN WALKING, NOT ELSEWHERE CLASSIFIED (2) Acute bronchitis Code(s): J20.9 - ACUTE BRONCHITIS, UNSPECIFIED (3) CA of prostate Code(s): C61 - MALIGNANT NEOPLASM OF PROSTATE (4) Dementia Code(s): F03.90 - UNSPECIFIED DEMENTIA WITHOUT BEHAVIORAL DISTURBANCE (5) Difficulty in swallowing Code(s): R13.10 - DYSPHAGIA, UNSPECIFIED (6) HTN (hypertension) Code(s): I10 - ESSENTIAL (PRIMARY) HYPERTENSION (7) Parkinson disease Code(s): G20 - PARKINSON'S DISEASE Assessment/Plan (1) Inability to ambulate due to hip Assessment/Plan: -continue PT -continue pain control -patient needs SNF placement for rehab Code(s): R26.2 - DIFFICULTY IN WALKING, NOT ELSEWHERE CLASSIFIED (2) Acute bronchitis Assessment/Plan: -continue augmentin and duonebs -improved Code(s): J20.9 - ACUTE BRONCHITIS, UNSPECIFIED (3) CA of prostate Assessment/Plan: -continue casodex -lupron due -administration made aware of need for lupron and is following up Code(s): C61 - MALIGNANT NEOPLASM OF PROSTATE (4) Dementia Assessment/Plan: -baseline -continue home regimen Code(s): F03.90 - UNSPECIFIED DEMENTIA WITHOUT BEHAVIORAL DISTURBANCE (5) Difficulty in swallowing Assessment/Plan: -speech therapy consulted and appreciate assistance Code(s): R13.10 - DYSPHAGIA, UNSPECIFIED (6) HTN (hypertension) Assessment/Plan: -continue norvasc Code(s): I10 - ESSENTIAL (PRIMARY) HYPERTENSION (7) Parkinson disease Assessment/Plan: -continue home regimen Code(s): G20 - PARKINSON'S DISEASE (8) Hypophosphatemia -replaced
[2017-07-28] MEDS: ALBUTEROL SO4 2.5/IPRATROPIUM 0.5 INH SOL 3 ML VIAL.NEB. NEB PRN (08:15)
[2017-07-28 08:59] LABS: BASO % 0.2 % (0-2.0); EOS % 5.9 % (0-4.5); HEMOGLOBIN 12.8 GM/dL (11.7-16.9); LYMPH % 23.5 % (8-40); MCH 31.2 pg (25.7-33.7); MCHC 33.7 g/dl (32.0-35.9); MEAN CELL VOLUME 92.4 fl (80-96); MEAN PLT VOLUME 7.4 fl (7.5-11.1); MONO % 10.6 % (3.8-10.2); NEUT % 59.8 % (42.8-82.8); PLATELET COUNT 159 K/MM3 (134-434); RBC 4.11 M/mm3 (4.00-5.60); WHITE BLOOD COUNT 6.3 K/mm3 (4.0-10.0)
[2017-07-28 09:23] LABS: ANION GAP 10 (8-16); BLOOD UREA NITROGEN 16 mg/dL (7-18); CALCIUM 9.4 mg/dL (8.5-10.1); CHLORIDE 105 mmol/L (98-107); CO2 25 mmol/L (21-32); CREATININE 0.8 mg/dL (0.7-1.3); GLUCOSE,RANDOM 114 mg/dL (74-106); MAGNESIUM 2.3 mg/dL (1.8-2.4); PHOSPHOROUS 2.7 mg/dL (2.5-4.9); POTASSIUM 4.1 mmol/L (3.5-5.1); SODIUM 140 mmol/L (136-145)
[2017-07-28] MEDS ORDERED: PT OWN MED DRAWER 7, Y5N ONE ×2 (10:09→22:04)
[2017-07-28] MEDS: ENOXAPARIN NA (PORCINE) 40 MG/0.4 ML DISP.SYRIN SQ SCH (10:12)
[2017-07-28] MEDS: AMANTADINE HCL 100 MG TABLET PO SCH ×2 (10:12→22:06)
[2017-07-28] MEDS: amLODIPine BESYLATE 2.5 MG TABLET (FP) PO SCH (10:12)
[2017-07-28] MEDS: BICALUTAMIDE 50 MG TABLET (FP) PO SCH (10:12)
[2017-07-28] MEDS: CITALOPRAM HYDROBROMIDE 10 MG TABLET (FP) PO SCH (10:13)
[2017-07-28] MEDS: CARBIDOPA/LEVODOPA 25/250 TABLET (FP) PO SCH ×2 (10:13→22:06)
--- NOTE | 2017-07-28 11:17 | PN ---
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 Pt is reported to be coughing intermittently while eating, more so when self feeding impulsively. REC: reduce po intake, single sips at a time. No continuous drinking. No straws. MBS Rehab placement- [facility] speech training
--- NOTE | 2017-07-28 15:19 | PN ---
Progress Note, Physician Chief Complaint: Mr Santos says he is feeling better but still with pain on movement. No cp, sob, n/v. - Current Medication List Current Medications: Active Medications Albuterol/Ipratropium (Duoneb -) 1 amp NEB RTID PRN PRN Reason: ASTHMA Last Admin: 07/28/17 08:15 Dose: 1 amp Amantadine HCl (Symmetrel -) 100 mg PO BID [facility] Last Admin: 07/28/17 10:12 Dose: 100 mg Amlodipine Besylate (Norvasc -) 2.5 mg PO DAILY [facility] Last Admin: 07/28/17 10:12 Dose: 2.5 mg Bicalutamide (Casodex -) 50 mg PO DAILY [facility] Last Admin: 07/28/17 10:12 Dose: 50 mg Carbidopa/Levodopa (Sinemet *Cr* 50/200 -) 1 combo PO DAILY [facility] Last Admin: 07/28/17 10:13 Dose: 1 combo Carbidopa/Levodopa (Sinemet 25/250 -) 1 each PO BID [facility] Last Admin: 07/28/17 10:13 Dose: 1 each Citalopram Hydrobromide (Celexa -) 10 mg PO DAILY [facility] Last Admin: 07/28/17 10:13 Dose: 10 mg Enoxaparin Sodium (Lovenox -) 40 mg SQ DAILY [facility] Last Admin: 07/28/17 10:12 Dose: 40 mg Leuprolide Acetate (Lupron Depot 22.5mg -) 22.5 mg IM ONCE ONE Stop: 07/25/17 16:31 Ondansetron HCl (Zofran Injection) 4 mg IVPUSH Q6H PRN PRN Reason: NAUSEA Oxycodone HCl (Roxicodone -) 5 mg PO Q6H PRN PRN Reason: PAIN LEVEL 6-10 Last Admin: 07/26/17 22:01 Dose: 5 mg - Objective Vital Signs: Vital Signs Temperature 36.8 C 07/28/17 09:00 Pulse Rate 63 07/28/17 09:00 Respiratory Rate 18 07/28/17 09:00 Blood Pressure 131/63 07/28/17 09:00 O2 Sat by Pulse Oximetry (%) 92 L 07/28/17 09:00 Constitutional: Yes: Well Nourished, No Distress, Calm Cardiovascular: Yes: Regular Rate and Rhythm. No: Gallop, Murmur, Rub Respiratory: Yes: Regular, CTA Bilaterally. No: Rales, Rhonchi, Wheezes Gastrointestinal: Yes: Normal Bowel Sounds, Soft. No: Distention, Tenderness Extremities: Yes: WNL Edema: No Labs: CBC, BMP 07/28/17 08:33 07/28/17 08:33 Problem List - Problems (1) Inability to ambulate due to hip Code(s): R26.2 - DIFFICULTY IN WALKING, NOT ELSEWHERE CLASSIFIED (2) Acute bronchitis Code(s): J20.9 - ACUTE BRONCHITIS, UNSPECIFIED (3) CA of prostate Code(s): C61 - MALIGNANT NEOPLASM OF PROSTATE (4) Dementia Code(s): F03.90 - UNSPECIFIED DEMENTIA WITHOUT BEHAVIORAL DISTURBANCE (5) Difficulty in swallowing Code(s): R13.10 - DYSPHAGIA, UNSPECIFIED (6) HTN (hypertension) Code(s): I10 - ESSENTIAL (PRIMARY) HYPERTENSION (7) Parkinson disease Code(s): G20 - PARKINSON'S DISEASE Assessment/Plan (1) Inability to ambulate due to hip Assessment/Plan: -continue PT -continue pain control -patient needs SNF placement for rehab Code(s): R26.2 - DIFFICULTY IN WALKING, NOT ELSEWHERE CLASSIFIED (2) Acute bronchitis Assessment/Plan: -resolved Code(s): J20.9 - ACUTE BRONCHITIS, UNSPECIFIED (3) CA of prostate Assessment/Plan: -continue casodex -lupron to be given tomorrow Code(s): C61 - MALIGNANT NEOPLASM OF PROSTATE (4) Dementia Assessment/Plan: -baseline -continue home regimen Code(s): F03.90 - UNSPECIFIED DEMENTIA WITHOUT BEHAVIORAL DISTURBANCE (5) Difficulty in swallowing Assessment/Plan: -speech therapy consulted and appreciate assistance Code(s): R13.10 - DYSPHAGIA, UNSPECIFIED (6) HTN (hypertension) Assessment/Plan: -continue norvasc Code(s): I10 - ESSENTIAL (PRIMARY) HYPERTENSION (7) Parkinson disease Assessment/Plan: -continue home regimen Code(s): G20 - PARKINSON'S DISEASE (8) Hypophosphatemia -replaced Dispo -d/c to SNF when bed available
[2017-07-29 09:39] VITALS: BP 122/78; PULSE 69; TEMP 98
[2017-07-29] MEDS ORDERED: PT OWN MED DRAWER 7, Y5N ONE ×2 (10:40→11:29)
[2017-07-29] MEDS: ENOXAPARIN NA (PORCINE) 40 MG/0.4 ML DISP.SYRIN SQ SCH (10:42)
[2017-07-29] MEDS: AMANTADINE HCL 100 MG TABLET PO SCH (10:43)
[2017-07-29] MEDS: amLODIPine BESYLATE 2.5 MG TABLET (FP) PO SCH (10:43)
[2017-07-29] MEDS: CARBIDOPA/LEVODOPA 25/250 TABLET (FP) PO SCH (10:43)
[2017-07-29] MEDS: CITALOPRAM HYDROBROMIDE 10 MG TABLET (FP) PO SCH (10:43)
[2017-07-29] MEDS: BICALUTAMIDE 50 MG TABLET (FP) PO SCH (10:45)
[2017-07-29] MEDS ORDERED: LEUPROLIDE ACETATE 22.5 MG DIS IM ONE (12:15)
--- NOTE | 2017-07-29 12:50 | DS ---
Physical Examination Vital Signs: Vital Signs Temperature 36.7 C 07/29/17 09:00 Pulse Rate 69 07/29/17 09:00 Respiratory Rate 18 07/29/17 09:00 Blood Pressure 122/78 07/29/17 09:00 O2 Sat by Pulse Oximetry (%) 93 L 07/28/17 21:00 Constitutional: Yes: Well Nourished, No Distress, Calm Cardiovascular: Yes: Regular Rate and Rhythm. No: Gallop, Murmur, Rub Respiratory: Yes: Regular, CTA Bilaterally. No: Rales, Rhonchi, Wheezes Gastrointestinal: Yes: Normal Bowel Sounds, Soft. No: Distention, Tenderness Extremities: Yes: WNL Edema: No Labs: CBC, BMP 07/28/17 08:33 07/28/17 08:33 Discharge Summary Reason For Visit: FALL INABILITY TO AMBULATE TO HIP Current Active Problems Acute bronchitis (Acute) CA of prostate (Acute) Dementia (Acute) Difficulty in swallowing (Acute) HTN (hypertension) (Acute) Inability to ambulate due to hip (Acute) Inability to bear weight (Acute) Musculoskeletal pain (Acute) Parkinson disease (Acute) Hospital Course: (1) Inability to ambulate due to hip Code(s): R26.2 - DIFFICULTY IN WALKING, NOT ELSEWHERE CLASSIFIED (2) Acute bronchitis Code(s): J20.9 - ACUTE BRONCHITIS, UNSPECIFIED (3) CA of prostate Code(s): C61 - MALIGNANT NEOPLASM OF PROSTATE (4) Dementia Code(s): F03.90 - UNSPECIFIED DEMENTIA WITHOUT BEHAVIORAL DISTURBANCE (5) Difficulty in swallowing Code(s): R13.10 - DYSPHAGIA, UNSPECIFIED (6) HTN (hypertension) Code(s): I10 - ESSENTIAL (PRIMARY) HYPERTENSION (7) Parkinson disease Code(s): G20 - PARKINSON'S DISEASE Mr Santos is a pleasant 87 year old male who comes in s/p fall with inability to ambulate. He was admitted to the hospital and attempted to ambulate here with PT. While he improved while here he was an unsafe discharge home. He continued PT and pain control but needs SNF placement for further care. While here he did receive his Lupron while here and is now safe for discharge to SNF. 31 minutes spent in preparation of this discharge Condition: Stable - Instructions Diet, Activity, Other Instructions: up with assistance, further activity per PT at SNF. Soft regular foods with thin liquids. Eat slow, follow each bite with sip of liquid. Upright for at least an hour after meals. No food 2-3 hours prior to bedtime. Referrals: Daniel Woods MD [Primary Care Provider] - [facility]position: [facility] - Home Medications Comprehensive Discharge Medication List: Ambulatory Orders Amlodipine Besylate [Norvasc -] 2.5 mg PO DAILY 08/17/16 Bicalutamide 50 mg PO DAILY 08/17/16 Carbidopa/Levodopa [Carbidopa-Levo ER 50-200 Tab] 1 each PO DAILY 08/17/16 Carbidopa/Levodopa [Carbidopa-Levodopa 25-250 Tab] 1 each PO BID 08/17/16 Physical Therapy Order 1 each NR ASDIR #1 order 08/19/16 Inhaler, Assist Devices [Space Chamber Plus] 1 each MC QID PRN #1 spacer Amantadine HCl [Amantadine] 100 mg PO BID 07/23/17 Citalopram Hydrobromide [Citalopram HBr] 10 mg PO DAILY 07/23/17 Enoxaparin [Lovenox -] 40 mg SQ DAILY disp.syrin 07/29/17 oxyCODONE HCL [Roxicodone -] 5 mg PO Q6H PRN tablet MDD 20mg 07/29/17
== END 2017-07-29 14:55 | DRG 57 ==
LOC: JER 20:09 → JERBED 23:25 → J8W 07-24 03:01 → OBSVTOIN 07-25 12:07 → J6S 07-26 17:03
PROVIDERS: ADMIT Internal Medicine; ATTEND Internal Medicine
DX: G20 Parkinson's disease (principal); M25.551 Pain in right hip; M25.511 Pain in right shoulder; F02.80 Dementia in other diseases classified elsewhere, unspecified severity, without behavioral disturbance, psychotic disturbance, mood disturbance, and anxiety; I10 Essential (primary) hypertension; M54.5 Low back pain; K21.9 Gastro-esophageal reflux disease without esophagitis; R26.2 Difficulty in walking, not elsewhere classified; F32.9 Major depressive disorder, single episode, unspecified; J20.9 Acute bronchitis, unspecified; R13.10 Dysphagia, unspecified; E83.39 Other disorders of phosphorus metabolism; C61 Malignant neoplasm of prostate; Z87.891 Personal history of nicotine dependence
CPT/HCPCS: 36415; 70450-TC; 71045-TC-FY; 72170-TC-FY; 73502-TC-RT; 74230-TC-FY; 80048; 80053; 82550; 83735; 84100; 84443; 84484; 85025; 90688; 92611-GN; 93005; 93010; 94640; 97116-GP; 97161-GP; 99282-25; G0008; G0378; J7030; J9217